=== PATIENT | female | born 1950 | race Two or more races ===

== ENCOUNTER → 2024-08-18 | Outpatient (CLI) | payer MEDICARE, SELFPAY ==
--- NOTE | 2024-08-18 08:00 | XR_ITS ---
Examination: Breast ultrasound complete, bilateral Date and time of exam: August 18, 2024 0855 hours INDICATIONS: Mammogram 04/10/2023 microcalcifications inferior lower right breast Technique: Real-time grayscale ultrasonographic imaging bilateral breasts, including all 4 quadrants as well as nipple retroareolar and axillary regions. Findings: Sonographic images right breast 1:00 cyst 6 x 7 mm 5:00 oval mass circumscribed 6 x 9 mm Sonographic images left breast 6:00 cyst 5 x 4 mm No solid nodules IMPRESSION: BI-RADS Category 3: Probably benign findings One additional 6 month right breast sonogram follow-up is needed to document stability of 5:00 nodule described above
--- NOTE | 2024-08-18 09:00 | XR_ITS ---
Examination: Screening digital mammography, bilateral Computer aided detection 3-D breast Tomosynthesis, bilateral Date and time of exam: August 18, 2024 0845 hours Compared to mammograms dating to February 14, 2022 Indication: Screening Technique: Nonmagnified MLO, CC views of the breasts to been obtained, reconstructed from 3-D Tomosynthesis images. R2 computer aided detection program utilized for evaluation of suspicious masses and/or abnormal calcifications. 3-D Tomosynthesis images obtained. Findings: The breasts are heterogeneously dense, which may obscure small masses Benign calcifications 11 mm nodule lobular margins 9:00 position right breast Impression: BI-RADS Category 0: Incomplete: Need additional imaging evaluation 11 mm nodule 9:00 position right breast, lobular margins, recommend follow-up spot tomographic views of this nodule as well as repeat right breast sonography with the radiologist in attendance
== END | disposition home or self-care (01) ==
PROVIDERS: PCP Physician Assistant; Referring Provider Physician Assistant; Visit Provider Physician Assistant
DX: Z12.31 Encounter for screening mammogram for malignant neoplasm of breast (principal); R92.8 Other abnormal and inconclusive findings on diagnostic imaging of breast; N63.15 Unspecified lump in the right breast, overlapping quadrants; N63.14 Unspecified lump in the right breast, lower inner quadrant
CPT/HCPCS: 76641; 77063; 77067

== ENCOUNTER → 2025-01-16 | Outpatient (CLI) | payer MEDICARE, SELFPAY ==
--- NOTE | 2025-01-16 11:00 | XR_ITS ---
Examination: Abdomen sonogram, complete Date and time of exam: January 16, 2025 1050 hours INDICATIONS: Left lower abdominal pain beginning 2 months ago. Technique: Multiple real-time grayscale transabdominal sonographic images of the abdomen have been obtained. Findings: 7 mm gallstone Gallbladder wall 0.3 cm Common bile duct 0.2 cm Pancreatic head 2.6 cm Aorta not enlarged Liver 14.9 cm fatty infiltration smooth contour no focal liver lesions Normal hepatopedal portal venous flow Patent IVC Right kidney 9.9 cm cortex 0.9 cm Left kidney 10.4 cm renal cortex 0.9 cm Mild to moderate bilateral renal parenchymal scar formation Spleen 9.9 cm IMPRESSION: Cholelithiasis, negative for cholecystitis Fatty liver
--- NOTE | 2025-01-16 11:30 | XR_ITS ---
Examination: Transvaginal ultrasound of the pelvis, complete Technique: Transvaginal sonographic images pelvis performed using stephen scale imaging Exam date and time: January 16, 2025 1112 hours INDICATIONS: Left lower abdominal pain beginning 2 months ago FINDINGS: Absent uterus Ovaries absent No free fluid in the pelvis No pelvic mass IMPRESSION: No free fluid in the pelvis No pelvic mass.
== END | disposition home or self-care (01) ==
LOC: CDIM 10:30
PROVIDERS: PCP Physician Assistant; Referring Provider Physician Assistant; Visit Provider Physician Assistant
DX: K80.20 Calculus of gallbladder without cholecystitis without obstruction (principal); K76.0 Fatty (change of) liver, not elsewhere classified
CPT/HCPCS: 76700; 76830

== ENCOUNTER 2025-04-14 12:04 | Inpatient (IN) | payer MEDICARE, MEDICAID, SELFPAY ==
--- NOTE | 2025-04-14 | XR_ITS ---
Examinations: MRI Brain without intravenous contrast. MRA brain without intravenous contrast. MRA carotids without intravenous contrast 3-D vascular reconstructions Date and time of exam: April 14, 2025 1735 hours INDICATIONS: Stroke alert today, onset focal neurologic deficit weakness in the left upper extremity and left lower extremity dizziness today Technique: Multiple axial and sagittal images of the brain have been obtained MRA brain carotid images without contrast obtained, including 3-D postprocessing, vascular maximum intensity projection images Findings: Sellaturcica is not enlarged. The optic chiasm and infundibular stalk are not remarkable. Prepontine and interpeduncular cisterns are not enlarged. No localized enlargement of the medulla or keny. Fourth ventricle and cerebellar tonsils normal in position. Subacute hemorrhage is not seen. Fourth ventricle is midline. Mass in the cerebellopontine angle region is not evident. 7th and 8th nerve complexes exhibits symmetry. Globes are symmetrical with no retro-orbital mass. Increased white matter signal moderate Diffusion-weighted images demonstrate 5 mm focus restricted diffusion right thalamus with matching signal deficit on the ADC map Mass-effect upon the ventricular system is not identified. MRA carotid images degraded by patient motion. MRA brain images significantly degraded by patient motion, no definite large vessel occlusions Impression: 5 mm acute infarct right thalamus
[2025-04-14 12:27] VITALS: BP 107/69; PULSE 81; RESP 17; TEMP 36.5; O2SAT 96; BMI 24.2
--- NOTE | 2025-04-14 12:34 | XR_ITS ---
Examination: CT brain head without contrast. 2-D sagittal coronal reconstructions Date and time of exam:April 14, 2025 1245 hours INDICATIONS: Stroke alert, onset focal neurologic deficit including right-sided numbness and weakness CTDI: vol (mGy):48.2 DLP: (mGycm):939 Technique: Multiple CT axial sections of the brain have been obtained, 5 mm slice thickness. Contrast has not been administered. 2-D sagittal, coronal reconstructions have been obtained Low dose protocols were performed. One or more of the following dose reduction techniques were used; automated exposure control, adjustment of the mA and/or KV according to patient size, use of iterative reconstruction technique. Findings: No significant ventricular enlargement. Intra-axial or extra-axial hemorrhage density is not seen. No mass effect or midline shift Basal cisterns are not remarkable. Fourth ventricle is midline. Cranial vault intact. Impression: Negative for acute hemorrhage, mass effect or midline shift
--- NOTE | 2025-04-14 12:34 | XR_ITS ---
Examination: AP chest single view Technique one AP portable upright chest single view Date and time: April 14, 2025 1315 hours INDICATIONS: Stroke alert today, altered mental status FINDINGS: Parenchymal disease in the lingular segment obscuring detail left cardiac contour Right lung clear No significant cardiac enlargement IMPRESSION: Recommend lateral chest view follow-up to assess parenchymal disease in the lingular segment
--- NOTE | 2025-04-14 12:34 | EKG_ITS ---
[facility] Test Date: 2025-04-14 Pat Name: DANNA COSTA Department: Room: - Gender: Female Virtual Reality Specialist: : 1950 Requested By: Ronan Santos Order Number: [id number] Reading MD: Ronan Santos Measurements Intervals [place] Rate: 72 P: 38 OK: 184 QRS: -41 QRSD: 116 T: -8 QT: 420 QTc: 461 Interpretive Statements SINUS RHYTHM LEFT AXIS DEVIATION [QRS AXIS < -30] INCOMPLETE RIGHT BUNDLE BRANCH BLOCK [90+ ms QRS DURATION, TERMINAL R IN V1/V2, 40+ ms S IN I/aVL/V4/V5/V6] MODERATE VOLTAGE CRITERIA FOR LVH, CONSIDER NORMAL VARIANT [MEETS CRITERIA IN ONE OF: R(aVL), S(V1), R(V5), R(V5/V6)+S(V1)] POSSIBLE LATERAL MYOCARDIAL INFARCTION , OF INDETERMINATE AGE [30 ms Q WAVE IN I/aVL/V5/V6] Compared to ECG 12/11/2020 08:27:34 Myocardial infarct finding now present /store/S0/[id number]/ecg/[id number].pdf
--- NOTE | 2025-04-14 12:39 | PD.EDDIZZY ---
ED Dizzyness RME/HPI General Chief Complaint: Dizziness Stated Complaint: Left side is numb since am, dizziness Time Seen by Provider: 04/14/25 12:27 Arrival date/time: 04/14/25 12:04 RME / HPI RME / HPI Narrative: 74-year-old female patient with significant history of diabetes, hypertension, recent mild stroke/mini stroke according to the patient last Thursday, was admitted in [facility] and was discharged after few days. According to her ,her MRI and CT scan of the head came back unremarkable. Around 11 AM this morning, after shower, patient felt worsening weakness to the left upper and lower extremity with chest discomfort. It was described as heavy. Also complained of dizziness. Denies any fall. Denies any other complaints. Patient is currently taking aspirin patient denies any slurring of speech. Patient is unable to ambulate without assistance due to weakness to the left side of the body. According to her this is worse than last Thursday. Related Data Home Medications ?Medication ?Instructions ?Recorded ?Confirmed pravastatin 80 mg tablet 80 mg PO HS #0 tabs 01/20/17 12/12/20 (Pravachol) temazepam 30 mg capsule (Restoril) 30 mg PO HS #0 caps 01/20/17 12/12/20 buprenorphine HCl 150 mcg buccal 150 mcg buccal Q12H 05/15/20 12/12/20 film (Belbuca) clonidine HCl 0.1 mg tablet 0.1 mg PO BID 05/15/20 12/12/20 pentoxifylline 400 mg 400 mg PO BID 05/15/20 12/12/20 tablet,extended release sitagliptin phosphate 100 mg 100 mg PO QDAY 05/15/20 12/12/20 tablet (Januvia) benazepril 20 mg tablet 20 mg PO QDAY 05/16/20 12/11/20 magnesium 200 mg tablet 200 mg PO QDAY 05/16/20 12/12/20 vit C,E,copper,zinc-haiat9v 250 1 cap PO BID 05/16/20 12/12/20 mg-lutein 5 mg-zeaxanthin 1 mg capsule (Ocuvite Adult 50 Plus) zinc 50 mg tablet 50 mg PO BID 05/16/20 12/12/20 cholecalciferol (vitamin D3) 125 125 mcg PO BID 12/11/20 12/12/20 mcg (5,000 unit) tablet (Vitamin D3) cyanocobalamin (vitamin B-12) 5,000 mcg PO BID 12/11/20 12/12/20 5,000 mcg sublingual tablet (Vitamin B-12) glipizide 10 mg tablet 10 mg PO BID 12/11/20 12/12/20 insulin glargine U-300 conc 300 50 unit subcut HS 12/11/20 12/12/20 unit/mL (1.5 mL) subcutaneous pen (Toujeo SoloStar U-300 Insulin) latanoprost 0.005 % eye drops 1 drp ophthalmic (eye) QPM 12/11/20 12/12/20 pregabalin 300 mg capsule 300 mg PO BID 12/11/20 12/12/20 timolol maleate 0.5 % once daily 1 drp ophthalmic (eye) BID 12/11/20 12/12/20 eye drops turmeric root extract 500 mg 500 mg PO BID 12/11/20 12/12/20 capsule Allergies Allergy/AdvReac Type Severity Reaction Status Date / Time fentanyl Allergy Unknown VOMITING Verified 04/14/25 12:08 acetaminophen (From Vicodin) Allergy Rash Verified 04/14/25 12:08 hydrocodone AdvReac Mild Itching Verified 04/14/25 12:08 Review of Systems Review of Systems Narrative Review of Systems: Review of system reviewed and within normal limits except mentioned in HPI ED Exam Narrative Physical exam: VITAL SIGNS: Reviewed. GENERAL APPEARANCE: Alert and interactive, follows commands, no acute distress, HEAD AND FACE: Non-traumatic. ENT: PERRL, pink conjunctivitis, eyelid no trauma, Mucous membrane moist. NECK: Supple, nontender, no nuchal rigidity. CHEST: No tenderness, no crepitus, no paradoxical movement, no retractions. LUNGS: Clear, well ventilated, symmetric, no rales, no wheezing, no ronchi, no stridor, good breath sounds bilaterally. HEART: Regular rate, regular rhythm, no murmur, no gallops. ABDOMEN: Soft, positive bowel sounds, nondistended, no guarding, nontender, no rebound, no masses, RECTAL: Deferred. GENITAL: Deferred. NEUROLOGICAL: Gross motor function intact sensory function intact, Appropriate for age. MUSCULOSKELETAL: low back nontender, full range of motion. EXTREMITIES: Mild drooping noted on the left upper extremity ,nontender, full range of motion. SKIN: Color pink, dry, no rash, no lacerations, no abrasions, no contusions. LYMPHATICS: Deferred. Course Quality Measures none Orders Category Date Time Status Bedside Blood Glucose NOW Care 04/14/25 12:34 Active COVID-19 Screening Questionnaire NOW Care 04/14/25 14:14 Active Fishing Captain NOW Care 04/14/25 12:34 Active Continuous Pulse Oximetry NOW Care 04/14/25 12:34 Completed Decision to Admit X1 Care 04/14/25 14:14 Active EKG (ED ONLY) *Do not use* NOW Care 04/14/25 12:34 Completed In and Out Catheter NEEDED Care 04/14/25 12:34 Active Insert IV NOW Care 04/14/25 12:34 Active NIH Stroke Scale now Care 04/14/25 12:34 Active NPO NOW Care 04/14/25 12:34 Active Nurse Swallow Screen x1 Care 04/14/25 12:34 Active Consult to Neurology / Tele-Neurology Routine Cons 04/14/25 12:[address] angio stroke protocol Stat Exams 04/14/25 12:[address] stroke protocol Stat Exams 04/14/25 12:34 Completed EKG (ED Only) Stat Exams 04/14/25 12:34 Draft XR chest 1V portable Stat Exams 04/14/25 12:34 Completed CBC Stat Lab 04/14/25 13:01 Completed Comprehensive Metabolic Panel Stat Lab 04/14/25 13:01 Completed Drug Screen,Urine Stat Lab 04/14/25 12:34 Ordered HCG Titer if Positive Stat Lab 04/14/25 13:01 Completed Magnesium Stat Lab 04/14/25 13:01 Completed Partial Thromboplastin Time Stat Lab 04/14/25 13:01 Completed Prothrombin Time with INR Stat Lab 04/14/25 13:01 Completed Troponin I Stat Lab 04/14/25 13:01 Completed Urinalysis Stat Lab 04/14/25 12:34 Ordered Urine Culture Stat Lab 04/14/25 12:34 Ordered Clopidogrel [Plavix] Med 04/14/25 12:53 Discontinued 300 mg PO X1 ONE Labetalol IV [Trandate IV] Med 04/14/25 12:34 Active 10 mg IVP Q15M PRN Magnesium Sulfate 2 GM Ivpb [Magnesium Sulfate Ivpb] Med 04/14/25 14:03 Active 2 gm in 50 ml IV X1 Ondansetron Inj [Zofran Inj] Med 04/14/25 12:34 Active 4 mg IVP Q4HR PRN Oxygen Delivery NOW RT 04/14/25 12:34 Active Vital Signs Vital signs: Vital Signs Temperature 97.7 F 04/14/25 12:27 Pulse Rate 81 04/14/25 12:27 Respiratory Rate 17 04/14/25 12:27 Blood Pressure 107/69 04/14/25 12:27 Pulse Oximetry (%) 96 04/14/25 12:27 Oxygen Delivery Method Room Air 04/14/25 12:27 Dizziness MDM Narrative MDM Narrative:: 74-year-old female patient with significant history of diabetes, hypertension, recent mild stroke/mini stroke according to the patient last Thursday, was admitted in [facility] and was discharged after few days. According to her ,her MRI and CT scan of the head came back unremarkable. Around 11 AM this morning, after shower, patient felt worsening weakness to the left upper and lower extremity with chest discomfort. It was described as heavy. Also complained of dizziness. Denies any fall. Denies any other complaints. Patient is currently taking aspirin patient denies any slurring of speech. Patient is unable to ambulate without assistance due to weakness to the left side of the body. According to her this is worse than last Thursday. Stroke alert was initiated right away EKG shows sinus rhythm, ventricular rate of 72 bpm, no ST segment elevation or depression noted. CT scan of the head came back unremarkable. CTA of the head and neck was not done per teleneurologist recommendation. Since patient had a thorough workup and [facility] few days ago. Regarding stroke. Spoke with teleneurologist, who advised me to admit the patient for stroke workup. Patient received Plavix full dose x 1 Patient's CBC came back with slight leukocytosis of 11.2 CMP unremarkable except for magnesium 1.2. Patient received magnesium replacement. Chest x-ray came back unremarkable. Patient data External records reviewed:: None Clinical information provided by:: patient Social determinants that could affect healthcare access:: none Patient has the following chronic illnesses:: Hypertension diabetes mellitus How is presenting disease/condition affected by chronic disease/condition?: exacerbated by Evaluation data The following diagnostics were reviewed and interpreted by me:: lab results, radiology exam(s) and EKG tracing(s) Lab and/or radiology exams considered but not ordered:: None Interpretation Summary: See results MDM Medications / Prescriptions Medications or Prescriptions considered but not ordered:: None Medication administrations:: Medication Administration History Magnesium Sulfate (Magnesium Sulfate Ivpb) 2 gm in 50 mls @ 25 mls/hr IV X1 ONE Stop: 04/14/25 16:02 Last Admin: 04/14/25 14:15 Dose: 25 mls/hr Documented By: HOLLIE Labetalol HCl (Labetalol Inj 5 Mg/Ml Vial 20 Ml) 10 mg IVP Q15M PRN PRN Reason: HYPER Ondansetron HCl (Ondansetron Inj 2 Mg/Ml Inj 2 Ml) 4 mg IVP Q4HR PRN PRN Reason: NAUSEA OR VOMITING Stop: 05/14/25 12:33 Discontinued Medications Clopidogrel Bisulfate (Clopidogrel Bisulfate 75 Mg Tablet) 300 mg PO X1 ONE Stop: 04/14/25 12:54 Last Admin: 04/14/25 13:13 Dose: 300 mg Documented By: HOLLIE Plavix Consultations Consultation(s) initiated? (list below): Yes Consultation #1 (Physician, Specialty, Details): Spoke with teleneurologist, discussed the case Diagnosis Dizziness Differential Diagnosis: vertebral basilar insufficiency and cerebrovascular accident Most likely diagnosis given after review of the tests above:: CVA recrudescence Admission Indicated Admission indicated?: indicated Explain why admission is indicated or not indicated:: For stroke workup Admission Request Was there a request for admission?: Yes Admission Attestation Admission request attestation: Discussed case with Hospitalist service regarding admission. Discussed patients ED course, exam findings, labs, and radiology results. The Hospitalist [agrees to accept the patient for admission. Disposition Plan Disposition Plan: Admit Discharge Plan Plan Patient Disposition: Admit Acute Care w/in Hospital Discharge Disposition comment: Stable Prescriptions/Referrals Prescriptions/Med Rec: No Action pravastatin [Pravachol] 80 MG tablet 80 mg PO HS Qty: 0 temazepam [Restoril] 30 MG capsule 30 mg PO HS Qty: 0 clonidine HCl 0.1 mg Tablet 0.1 mg PO BID Januvia 100 mg Tablet 100 mg PO QDAY Belbuca 150 mcg Film 150 mcg BUCCAL Q12H pentoxifylline 400 mg Tablet Extended Release 400 mg PO BID benazepril 20 mg Tablet 20 mg PO QDAY zinc 50 mg Tablet 50 mg PO BID magnesium 200 mg Tablet 200 mg PO QDAY Ocuvite Adult 50 Plus 250-5-1 mg Capsule 1 cap PO BID latanoprost 0.005 % Drops 1 drp OPHTHALMIC (EYE) QPM glipizide 10 mg Tablet 10 mg PO BID timolol maleate 0.5 % Drops, Once Daily 1 drp OPHTHALMIC (EYE) BID pregabalin 300 mg Capsule 300 mg PO BID cholecalciferol (vitamin D3) [Vitamin D3] 125 mcg (5,000 unit) Tablet 125 mcg PO BID cyanocobalamin (vitamin B-12) [Vitamin B-12] 5,000 mcg Tablet, Sublingual 5,000 mcg PO BID turmeric root extract 500 mg Capsule 500 mg PO BID Toujeo SoloStar U-300 Insulin 300 unit/mL (1.5 mL) Insulin Pen 50 unit SUBCUT HS Referrals: Luz Maria Patino PA-C [Primary Care Provider] - In 1 week Problem List Clinical Impression: Cerebrovascular accident Patient/Caregiver Discharge Instructions Print Language: Kiswahili Stand Alone Forms: Mary Award Info., Patient Portal Info Letter
[2025-04-14 13:12] LABS: Basophils # (Auto) 0.0 Thou/mm3 (0.0-0.2); Basophils % (Auto) 0 % (0-2.5); Eosinophils # (Auto) 0.2 Thou/mm3 (0.0-0.5); Eosinophils % (Auto) 1 % (0-10); Hematocrit 38.6 % (36.0-46.0); Hemoglobin 13.4 g/dL (12.0-16.0); Immature Granulocytes Auto 0.04 Thou/mm3 (0.00-0.00); Lymphocytes # (Auto) 3.6 Thou/mm3 (1.0-4.8); Lymphocytes % (Auto) 32 % (10-50); Mean Corpuscular HGB Conc 34.7 g/dl (31.0-37.0); Mean Corpuscular Hemoglobin 29.5 pg (25.0-35.0); Mean Corpuscular Volume 85 fL (80-100); Monocytes # (Auto) 0.9 Thou/mm3 (0.0-0.8); Monocytes % (Auto) 8 % (0-12); Neutrophils # (Auto) 6.5 Thou/mm3 (1.8-7.7); Neutrophils % (Auto) 58 % (37-80); Nucleated Red Blood Cell # 0.00 Thou/mm3 (0.00-0.00); Nucleated Red Blood Cell % 0 /100 WBC (0); Platelet Count 191 Thou/mm3 (140-440); RDW Standard Deviation 41.2 fL (36.4-46.3); Red Blood Count 4.54 Miln/mm3 (4.00-5.20); White Blood Count 11.2 Thou/mm3 (3.6-11.0)
[2025-04-14] MEDS: CLOPIDOGREL BISULFATE 75 MG TABLET 300 MG PO (13:13)
--- NOTE | 2025-04-14 13:38 | ESCONSULT_ITS ---
Tele Neuro Consultation Consultation Date 04/14/25 Most Recent Vital Signs Last Vital Signs Temp 97.7 F 04/14/25 12:27 Pulse 81 04/14/25 12:27 Resp 17 04/14/25 12:27 BP 107/69 04/14/25 12:27 Pulse Ox 96 04/14/25 12:27 O2 Del Method Room Air 04/14/25 12:27 Consultation Narrative [facility] Patient Name: jorge luis montiel Date of : 1950 Identification Number: Date of Service: 04/14/2025 12:37:45 Diagnosis: ? I63.89 - Cerebrovascular accident (CVA) due to other mechanism ([facility]) Impression: ? Stroke versus stroke recrudescence Patient's not within the window for treatment with IV thrombolytic therapy after further confirming with the patient her last known normal was 5 days ago I would recommend admission for repeat MRI of the brain without contrast Plavix 300 mg now and begin a 21-day course of dual antiplatelet therapy consisting of Plavix 75 mg and aspirin 81 mg daily Records from the outside facility for her admission will need to be obtained and reviewed Carotid duplex studies or MRA head and neck study is reasonable Our recommendations are outlined below. Recommendations: ? Stroke/Telemetry Floor ? Neuro Checks (Q2) ? Bedside Swallow Eval ? DVT Prophylaxis ? IV Fluids, Normal Saline ? Head of Bed 30 Degrees ? Euglycemia and Avoid Hyperthermia (PRN Acetaminophen) ? Bolus with Clopidogrel 300 mg bolus x1 and initiate dual antiplatelet therapy with Aspirin 81 mg daily and Clopidogrel 75 mg daily Sign Out: ? Discussed with Emergency Department Provider Advanced Imaging: Advanced Imaging Deferred because: Does not meet criteria due to being out of the 24-hour window for thrombectomy Metrics: Last Known Well: Unknown Dispatch Time: 04/14/2025 12:37:45 Arrival Time: 04/14/2025 12:05:00 Initial Response Time: 04/14/2025 12:42:42 Symptoms: L sided weakness . Initial patient interaction: 04/14/2025 12:47:47 NIHSS Assessment Completed: 04/14/2025 12:49:45 Patient is not a candidate for Thrombolytic. Thrombolytic Medical Decision: 04/14/2025 12:49:48 Patient was not deemed candidate for Thrombolytic because of following reasons: LKW outside 4.[address] Head: I personally reviewed all the CT images that were available to me and it showed: no acute abnormality Primary Provider Notified of Diagnostic Impression and Management Plan on: 04/14/2025 13:34:31 History of Present Illness: Patient is a 74 year old Female. Patient was brought by private transportation with symptoms of L sided weakness . 74-year-old female with a past medical history significant for hypertension hyperlipidemia as well as diabetes Patient also has peripheral vascular disease and neuropathy Reportedly the patient was admitted to a different facility a week ago with TIA symptoms that she states consisted of left-sided weakness numbness and tingling She informs me she had an MRI of the brain and they told her that it was difficult to ascertain whether or not she truly did have an infarct but she was then discharged on aspirin When I question whether not she had any residual deficits she states they were very mild consisting of just a little bit of numbness and tingling in her left arm and left leg She returns to the emergency department today with an unknown last normal time stating that her left arm and left leg feel much heavier and the numbness and tingling is much more profound Past Medical History: ? Hypertension ? Diabetes Mellitus ? Hyperlipidemia ? Stroke ? There is no history of Atrial Fibrillation ? There is no history of Coronary Artery Disease ? There is no history of Covid-19 ? There is no history of Seizures ? There is no history of Migraine Headaches ? There is no history of Dementia/MCI Medications: No Anticoagulant use Antiplatelet use: Yes Aspirin Reviewed EMR for current medications Allergies: Reviewed Social History: Drug Use: No Family History: There is no family history of premature cerebrovascular disease pertinent to this consultation ROS : 14 Points Review of Systems was performed and was negative except mentioned in HPI. Past Surgical History: There Is No Surgical History Contributory To Today?s Visit Examination: BP(107/69), Pulse(81), Blood Glucose(173) 1A: Level of Consciousness - Alert; keenly responsive + 0 1B: Ask Month and Age - Both Questions Right + 0 1C: Blink Eyes & Squeeze Hands - Performs Both Tasks + 0 2: Test Horizontal Extraocular Movements - Normal + 0 3: Test Visual Le - No Visual Loss + 0 4: Test Facial Palsy (Use Grimace if Obtunded) - Normal symmetry + 0 5A: Test Left Arm Motor Drift - Drift, hits bed + 2 5B: Test Right Arm Motor Drift - No Drift for 10 Seconds + 0 6A: Test Left Leg Motor Drift - Some Effort Against [place] + 2 6B: Test Right Leg Motor Drift - No Drift for 5 Seconds + 0 7: Test Limb Ataxia (FNF/Heel-Jeffery) - No Ataxia + 0 8: Test Sensation - Mild-Moderate Loss: Can Sense Being Touched + 1 9: Test Language/Aphasia - Normal; No aphasia + 0 10: Test Dysarthria - Normal + 0 11: Test Extinction/Inattention - No abnormality + 0 NIHSS Score: 5 Pre-Morbid Modified Celestine Scale: 1 Points = No significant disability despite symptoms; able to carry out all usual duties and activities Spoke with : Dr. Santos This consult was conducted in real time using interactive audio and video technology. Patient was informed of the technology being used for this visit and agreed to proceed. Patient located in hospital and provider located at home/office setting. Patient is being evaluated for possible acute neurologic impairment and high probability of imminent or life-threatening deterioration. I spent total of 35 minutes providing care to this patient, including time for face to face visit via telemedicine, review of medical records, imaging studies and discussion of findings with providers, the patient and/or family. Dr Mark Stroud [facility] For Inpatient follow-up with [facility] physician please call [facility] at . As we are not an outpatient service for any post hospital discharge needs please contact the hospital for assistance. If you have any questions for the [facility] physicians or need to reconsult for clinical or diagnostic changes please contact us via C at .
[2025-04-14 13:43] LABS: HCG Titer if Positive Negative
[2025-04-14 13:46] LABS: INR 1.0 (0.9-1.3); Partial Thromboplastin Time 27.9 Seconds (22.0-36.0); Prothrombin Time 10.9 Seconds (9.0-12.2)
[2025-04-14 13:49] LABS: Alanine Aminotransferase 32 U/L (10-49); Albumin, Serum 3.9 gm/dL (3.4-4.8); Albumin/Globulin Ratio 1.4 (1.2-2.2); Alkaline Phosphatase 99 U/L (46-116); Anion Gap 12 (7-16); Aspartate Amino Transferase 41 U/L (0-34); BUN/Creatinine Ratio 15 Ratio (12-20); Bilirubin,Total 0.6 mg/dL (0.3-1.2); Blood Urea Nitrogen 19 mg/dL (9-23); Calcium 8.9 mg/dL (8.3-10.6); Calcium (Corrected) 9.0 mg/dL (8.5-10.1); Carbon Dioxide 21.5 mMol/L (20.0-31.0); Chloride 107 mMol/L (98-107); Creatinine (Component) 1.3 mg/dL (0.6-1.3); Estimated Creatinine Clearance 35.5 mL/min (>60); Globulin 2.7 gm/dL (2.3-3.5); Glucose 172 mg/dL (74-106); Magnesium 1.2 mg/dL (1.6-2.6); Osmolality,Calculated 285 (275-295); Potassium 4.3 mMol/L (3.4-5.1); Sodium 140 mMol/L (136-145); Total Protein 6.6 gm/dL (5.7-8.2); Troponin I < 0.020 ng/mL (0.0-0.045); eGFR 43 See Note
[2025-04-14 14:04] VITALS: BP 111/58; PULSE 71; RESP 17; TEMP 36.4; O2SAT 96
[2025-04-14] MEDS: Magnesium Sulfate 2 GM Ivpb 2 GM/50 ML BAG IV (14:15)
--- NOTE | 2025-04-14 15:06 | ESHP_ITS ---
<Statement entered by Ba Becerril MD - 04/14/25 16:49> This patient is a 74-year-old female with past medical history of hypertension, diabetes, fibromyalgia and spinal cyst with surgery in 1991 presented with left- sided upper and lower extremity weakness/heaviness. Patient had syncope 1 month ago and was hospitalized at [facility] and was worked up for stroke/TIA. Workup was negative at the hospital setting. Patient has mild shortness of breath with headache and cloudy vision on the left side. Head CT showed no acute changes. Patient was given aspirin and Plavix with statin. Will follow- up on MRI brain stroke protocol, PT evaluation and echocardiogram and orthostatic vital. Follow neurology recommendations. I discussed and supervised with the internet project manager physician who took care of this patient. I personally saw and examined the patient. I agree with most of the assessment and plan. Disclaimer: Despite multiple revisions, due to the dictation software being used, the document bellow may not be free of grammatical errors including phonetic/typographic errors. However, this does not deter from our commitment to providing health care in the patient's best interest in mind. Plan of care discussed with attending Physician Dr. Julio Becerril MD PGY-3 Documentation for date of: 04/14/25 HPI History of Present Illness History of present illness: Mr. Garduno is a 74-year-old woman with a history of hypertension,diabetes insulin, fibromyalgia, and history of spinal cyst 2 inches with surgery in [address] Beatty, patient reports recent fall within the past month with head strike. She reports that she was hospitalized at [facility] 04/08 and underwent stroke workup for presentation of left upper and lower paresthesias, that resolved, but stroke workup was negative and they discharged her with aspirin, Plavix, and statin. She reports that 9 AM today she was feeling well she went to prepare her breakfast and started to feel lightheaded. She states that she began to experience left-sided upper extremity and lower extremity heaviness which prompted her to sit down. She states that this left-sided sensation is different from what she experienced on 04/08. ROS Patient endorses shortness of breath upon exertion, headache, urge incontinence, and cloudy vision on the left side. Patient denies fever chills chest pain cough ED course Dx * Chest x-ray * UA * Urine cultures * Noncon head CT Negative for acute hemorrhage, mass effect or midline shift * Telemetry neuroconsulted Tx * Clopidogrel 300 mg bolus dose * Magnesium repletion Review of Systems Review of Systems Narrative Review of Systems: As per HPI Past Medical History Surgical History OTHER SURGICAL HX: Hysterectomy, lumpectomy on the right breast, tubal ligation, D&C, back surgery in 1991 for spinal cyst, Social History SOCIAL: No smoking history no alcohol use Patient endorses occasional THC use Gummies to help with sleep Patient lives at home with daughter she is independent of ADLs and IADLs and has cane at home Exam Vital Signs Temp Pulse Resp BP Pulse Ox O2 Del Method 97.6 F 71 17 111/58 L 96 Room Air 04/14/25 14:04 04/14/25 14:04 04/14/25 14:04 04/14/25 14:04 04/14/25 14:04 04/14/25 14:04 Narrative Exam GENERAL: no acute distress, AAO x3, comfortably laying in bed HEENT: Head AT/ NC. Mucous membranes dry . PERRL. NECK: Supple, no lymphadenopathy, no carotid bruits. CARDIOVASCULAR: RRR. Normal S1/S2, No m/r/g. No pitting edema of bilateral LEs. RESPIRATORY: CTAB. No wheezing, rhonchi, crackles. GASTROINTESTINAL: Abdomen soft, non tender no palpable masses. Bowel sounds present MUSCULOSKELETAL:? No cyanosis or edema, no visible joint swelling. NEUROLOGICAL: CN II-XII grossly intact. No focal deficits. Sensation intact, symmetric. ? CRANIAL NERVES: ? II: Pupils equal and reactive, no RAPD,?minimal R visual field. Left visual field is normal ? III, IV, : EOM intact, no gaze preference or deviation ? V: normal ? VII: no facial asymmetry ? VIII: normal hearing to speech ? MOTOR: 5/5 in both upper , Left lower extremity is 2/5 strength . RLE is 5/5 ? REFLEXES:not tested ? SENSORY: Normal to touch ? COORD: Normal finger to nose, no tremor, did not assess gait. PSYCHIATRIC: Awake and alert, not agitated, normal mood and affect. SKIN: No obvious rashes, no jaundice, normal turgor. Results: Labs 04/15/25 04:40 04/15/25 04:40 Labs: Short CBC 07/18/25 Range/Units 13:01 WBC 11.2 H (3.6-11.0) Thou/mm3 Hgb 13.4 (12.0-16.0) g/dL Hct 38.6 (36.0-46.0) % Plt Count 191 (140-440) Thou/mm3 BMP 04/14/25 13:01 Sodium 140 Potassium 4.3 Chloride 107 Carbon Dioxide 21.5 BUN 19 Creatinine 1.3 Glucose 172 H Calcium 8.9 Cardiac Enzymes 04/14/25 Range/Units 13:01 Troponin I < 0.020 (0.0-0.045) ng/mL Liver Function 04/14/25 Range/Units 13:01 Total Bilirubin 0.6 (0.3-1.2) mg/dL AST 41 H (0-34) U/L ALT 32 (10-49) U/L Alkaline Phosphatase 99 (46-116) U/L Albumin 3.9 (3.4-4.8) gm/dL Quality Measures Quality Measures none Advance care planning discussed with:: patient Medications Home Medications and Allergies Home Medications ?Medication ?Instructions ?Recorded ?Confirmed ?Type pravastatin 80 mg tablet 80 mg PO HS #0 tabs 01/20/17 04/14/25 History (Pravachol) temazepam 30 mg capsule (Restoril) 30 mg PO HS #0 caps 01/20/17 04/14/25 History buprenorphine HCl 150 mcg buccal 150 mcg buccal Q12H 0 05/15/20 04/14/25 History film (Belbuca) clonidine HCl 0.1 mg tablet 0.1 mg PO BID 05/15/20 History pentoxifylline 400 mg 400 mg PO BID 05/15/2012/12 History tablet,extended release sitagliptin phosphate 100 mg 100 mg PO QDAY 05/15/20 0 04/14/25 History tablet (Januvia) benazepril 20 mg tablet 20 mg PO QDAY 05/16/2004/14 History magnesium 200 mg tablet 200 mg PO QDAY 05/16/2003/28 History vit C,E,copper,zinc-[id number] 250 1 cap PO BID 05/16/20 12/12/20 History mg-lutein 5 mg-zeaxanthin 1 mg capsule (Ocuvite Adult 50 Plus) zinc 50 mg tablet 50 mg PO BID 05/16/20 History cholecalciferol (vitamin D3) 125 125 mcg PO BID 04/14/25 History mcg (5,000 unit) tablet (Vitamin D3) cyanocobalamin (vitamin B-12) 5,000 mcg PO BID 1 04/14/25 History 5,000 mcg sublingual tablet (Vitamin B-12) glipizide 10 mg tablet 10 mg PO BID 12/11/20 History insulin glargine U-300 conc 300 50 unit subcut HS 11/2612/12/20 History unit/mL (1.5 mL) subcutaneous pen (Toujeo SoloStar U-300 Insulin) latanoprost 0.005 % eye drops 1 drp ophthalmic (eye) Q PM 12/11/20 12/12/20 History pregabalin 300 mg capsule 300 mg PO BID 12/11/2004/14 History timolol maleate 0.5 % once daily 1 drp ophthalmic (eye ) BID 12/11/20 04/14/25 History eye drops turmeric root extract 500 mg 500 mg PO BID 12/11/20 History capsule estradiol 1 mg tablet 1 mg PO HS 04/14/25 04/14/25 History finerenone 10 mg tablet (Kerendia) 10 mg PO HS 5 04/14/25 History insulin glargine U-300 conc 300 40 unit subcut HS 03/2804/14/25 History unit/mL (3 mL) subcutaneous pen (Toujeo Max U-300 SoloStar) semaglutide 0.25 mg or 0.5 mg (2 0.5 mg subcut QWEEK 0 04/14/25 04/14/25 History mg/3 mL) subcutaneous pen injector (Ozempic) Allergies Allergy/AdvReac Type Severity Reaction Status Date / Time fentanyl Allergy Unknown VOMITING Verified 04/14/25 12:08 acetaminophen (From Vicodin) Allergy Rash Verified 04/14/25 12:08 hydrocodone AdvReac Mild Itching Verified 04/14/25 12:08 Visit Medications Magnesium Sulfate (Magnesium Sulfate Ivpb) 2 gm in 50 mls @ 25 mls/hr IV X1 ONE Stop: 04/14/25 16:02 Last Admin: 04/14/25 14:15 Dose: 25 mls/hr Labetalol HCl (Labetalol Inj 5 Mg/Ml Vial 20 Ml) 10 mg IVP Q15M PRN PRN Reason: HYPER Ondansetron HCl (Ondansetron Inj 2 Mg/Ml Inj 2 Ml) 4 mg IVP Q4HR PRN PRN Reason: NAUSEA OR VOMITING Stop: 05/14/25 12:33 Discontinued Medications Clopidogrel Bisulfate (Clopidogrel Bisulfate 75 Mg Tablet) 300 mg PO X1 ONE Stop: 04/14/25 12:54 Last Admin: 04/14/25 13:13 Dose: 300 mg Assessment & Plan Plan Mr. Garduno is a 74-year-old woman with a history of hypertension,diabetes insulin, fibromyalgia, and history of spinal cyst 2 inches with surgery in [address] Beatty, patient reports recent fall within the past month with head strike. She reports that she was hospitalized at [facility] 04/08 and underwent stroke workup for presentation of left upper and lower paresthesias, that resolved, but stroke workup was negative and they discharged her with aspirin, Plavix, and statin. she presented to our ED with LLE focal weakness pending stroke work up. Consider possible compression from spinal cyst appreciate input from neuro given patient follows with them. #Acute ischemic Stroke Patient was not deemed a candidate for tPA because last known well was greater than 4.5 hours NIHSS score of 5 per tele neuro Dx * NCHCT Negative for acute hemorrhage, mass effect or midline shift * CTA head neck not indicated. Telemetry neuroconsult recommendations * Brain MRI pending * Echo pending * A1c pending * TSH pending * Lipid panel Triglycerides 450, * Every 4 hours neuro checks * Telemetry neurology consulted recommends; Bolus with Clopidogrel 300 mg bolus x1 and initiate dual antiplatelet therapy with Aspirin 81 mg daily and Clopidogrel 75 mg daily * In-house neurologist consulted: Dr. Gavin, appreciate recs * Consult physical therapy * Consult speech Tx * Clopidogrel 300 mg 1x bolus * ASA 81 mg daily * Clopidogrel 75 mg daily * Atorvastatin 40 mg at bedtime * pt is allergic to APAP, avoid hyperthermia * Hydralazine 10 mg every 8 hours as needed for SBP greater than 180 * Keep euglycemic * Head a bed 30 degrees * Permissive hypertension in the first 48 hours continue to hold home antihypertensives # Leukocytosis Mild leukocytosis noted on labs, continue to monitor for uptrending and follow- up infectious workup Dx CXR negative UA pending UCx pending #Spinal Cyst per pt report she has hx of spinal cyst, unclear at what spinal level with hx of back surgery in 1991. per patient in 2008 he found recurrence of the cyst. She states that the cyst is now 2 inches. She denies any red flag symptoms of saddle anesthesia bowel or bladder incontinence however this focal left lower extremity weakness is concerning for possible compression. - Appreciate neuro recs Chronic #Fibromyalgia - Lyrica 300mg #T2DM on insulin per patient she takes insulin long acting 40 unitis at night and glipizide 10 mg PO BID, Stitagliptin (Januvia) - SSI -Q6hr checks - 20 units insulin long acting #HTN -benazepril 20 mg qd ? #R eye Glaucoma - latanoprost 1 drop qd - timolol 1 drop qd #HLD per pt report she was started on 2 statin medications upon discharge from [facility] Triglycerides elevated on intake 450 HDL 33 #insomnia -HOLD temazepam 30 mg qhs #Vaginal prolapse -estridiole Dispo: pending stroke workup Diet: Carb controlled diet pending bedside nurse swallow Bowel Reg: Senna 1 tab daily scheduled, MiraLAX daily 17 g daily scheduled VTE ppx: Heparin SC 5000 GI ppx: Protonix 40 Code status: Full Case discussed with my senior resident Dr. Becerril Case discussed with my attending Dr. Julio Hsu MD PGY-1 Attending Provider Attestation/Addendum Kristina Dumas DO, attest that I was physically present for the trujillo portions of the service and evaluated the patient with the resident and I reviewed and discussed the case with the resident and agree with the resident's findings and plans of care as documented above Patient is a 74-year-old female with past medical history of hypertension, diabetes, fibromyalgia, spinal cyst who was brought to the ED due to sudden onset of left sided weakness. She states that she noted it this morning while walking to the kitchen and felt some heaviness in her left upper and lower extremity. Patient states that she was recently seen at [facility] and worked up for possible stroke. She states that she had undergone an MRI and was told that she may have had a TIA. However, she reported that the MRI did not show any acute CVA. Patient states during that episode, patient had left upper extremity weakness, that quickly improved after admission at [facility]. Patient states that she had some unsteadiness in the past month or so while on a trip in [place] taking care of her family members. She has endorsing occasional dizziness/lightheadedness, but no changes in vision. Here in the ED, stroke alert was called during which a CT head was done and showed no acute intracranial findings. Teleneuro was consulted and recommended Plavix loading dose of 300 mg. Patient has been on aspirin and and statin at home since her discharge from [facility]. Upon evaluation, patient is noted to have left lower extremity weakness with muscle strength 1 out of 5 and left upper extremity framework developer strength 4 out of 5. Rest of exam was unremarkable. During examination of extra ocular muscles, movement did reproduce the lightheadedness that patient reported this morning. Gross sensation is intact in bilateral upper and lower extremities. Will admit patient to telemetry for further workup and medical management of acute CVA. Will order MRI and place patient on cardiac monitoring to obtain echocardiogram. Patient had been referred to Dr. Higgins outpatient for cardiology follow-up and has been being worked up for possible arrhythmia. Will order echocardiogram. She states that she had been referred due to some shortness of breath on exertion. Patient denies any smoking or underlying lung issues. She denies any chest pain, chills, nausea, vomiting, diarrhea, dysuria otherwise.
--- NOTE | 2025-04-14 15:07 | ECHO_ITS ---
Transthoracic Echo Report Ht (in): 66 Wt (lb): 150 Exam Location: Echo Lab Status: Emergency Concierge: Petra Flores Indications: Procedure Performed: BP: 108 / 71 HR: 94 Technical Quality: Technically difficult study MEASUREMENTS (Male / Female) Normal Values 2D ECHO LV Diastolic Diameter PLAX 2.8 cm 4.2 - 5.9 / 3.9 - 5.3 cm LV Systolic Diameter PLAX 1.9 cm IVS Diastolic Thickness 1.1 cm 0.6 - 1.0 / 0.6 - 0.9 cm LVPW Diastolic Thickness 1.0 cm 0.6 - 1.0 / 0.6 - 0.9 cm LV Relative Wall Thickness 0.8 LVOT Diameter 1.3 cm Aortic Root Diameter 2.8 cm LA Volume Index 20.3 cm?/m? 16 - 28 cm?/m? Ascending Aorta Diameter 2.3 cm M-MODE Aortic Root Diameter MM 2.4 cm LA Systolic Diameter MM 3.2 cm LA Ao Ratio MM 1.3 AV Cusp Separation MM 2.2 cm DOPPLER AV Peak Velocity 127.0 cm/s AV Peak Gradient 6.5 mmHg AV Mean Gradient 4.0 mmHg AV Velocity Time Integral 36.6 cm LVOT Peak Velocity 88.8 cm/s LVOT Peak Gradient 3.2 mmHg LVOT Velocity Time Integral 23.9 cm LVOT Cardiac Index 1667.8 cm?/min?m? AV Area Cont Eq vti 0.9 cm? AV Area Cont Eq pk 0.9 cm? MV Area PHT 3.8 cm? Mitral E Point Velocity 95.6 cm/s Mitral A Point Velocity 119.0 cm/s Mitral E to A Ratio 0.8 LV E' Lateral Velocity 5.8 cm/s Mitral E to LV E' Lateral Ratio 16.6 LV E' Septal Velocity 5.8 cm/s Mitral E to LV E' Septal Ratio 16.6 TR Peak Velocity 239.0 cm/s TR Peak Gradient 22.8 mmHg PV Peak Velocity 93.7 cm/s PV Peak Gradient 3.5 mmHg FINDINGS Left Ventricle Normal left ventricular size and systolic function with no obvious regional wall motion abnormalities. Mild LVH. The ejection fraction is visually estimated at 55-60 %. There is grade I diastolic dysfunction of the left ventricle (impaired relaxation pattern). Right Ventricle The right ventricle is normal in size and systolic function. The estimated right ventricular systolic pressure, 28 mmHg. RAP 5. Left Atrium The left atrium is normal by two-dimensional, color flow and Doppler imaging with no structural abnormalities, no thrombus formation present. Right Atrium The right atrium is normal by two-dimensional imaging, color flow and Doppler imaging with no structural abnormalities, no thrombus formation present. Atrial Septum The interatrial septum appears normal with no evidence of a shunt. Aorta The aorta is normal by two-dimensional, color flow and Doppler interrogation. Mitral Valve The mitral valve is normal by two-dimensional, color flow and Doppler interrogation. There is no significant mitral valve regurgitation, stenosis or prolapse. Aortic Valve The aortic valve is trileaflet and normal by two-dimensional, color flow and Doppler interrogation. There is no significant aortic valve regurgitation. Tricuspid Valve The tricuspid valve is normal by two-dimensional, color flow and Doppler interrogation. There is trace tricuspid valve regurgitation. Pulmonic Valve The pulmonic valve is not well visualized. There is no significant pulmonic valve regurgitation. Vessels The pulmonary artery appears normal. The inferior vena cava pulmonary and hepatic veins appear normal. Pericardium The pericardium is normal by two-dimensional imaging. There is no significant pericardial effusion. CONCLUSIONS Indication: stroke Bubble study negative for any PFO or ASD. No evidence of any LA or LA thrombus. Normal LV size and function. Mild LVH. Estimated EF of 60 to 65%. Grade 1 diastolic dysfunction. Normal RV size and function. Estimated RVSP of 28 mmHg. Trace MR and TR. No pericardial effusion. Kamaljit Maldonado (Electronically Signed) Final Date: 16 April 2025 08:53
[2025-04-14 15:43] LABS: Cardiac Risk Estimate 4.8 RATIO (3.7-5.6); Cholesterol 159 mg/dL (132-200); HDL Cholesterol 33 mg/dL (40-60); Thyroid Stimulating Hormone 2.75 uIU/mL (0.55-4.78); Triglycerides 450 mg/dL (30-150)
[2025-04-14 15:50] LABS: Glucose Estimated Average 209 mg/dL (80-131); Hemoglobin A1C 8.9 % Hgb (4.8-6.0)
[2025-04-14 15:53] VITALS: BP 108/71; PULSE 63; RESP 20; TEMP 36.4; O2SAT 94
[2025-04-14] MEDS: ATORVASTATIN CALCIUM 10 MG TABLET 40 MG PO (16:10)
--- NOTE | 2025-04-14 16:12 | PC.CC ---
Patient is a 74 year-old female who presents to the hospital for left side numb and dizziness. MARLENWPriyanka and LAB AID Student Terra made [id number] contact with patient. ASW introduced self, role, and reason for visit. Patient appeared alert and oriented to self, location, and situation. Patient provided consent for LAB AID to remain in the room during assessment. Patient was pleasant and engaged in initial assessment. Patient confirmed information on demographics and reports to living at home with her daughter, Olive Myers . Patient reports her medical decision maker in the event she is unable to make her own medical decisions would be her daughter, Olive. Patient reports she is able to ambulate independently and complete her own ADLs. Patient does not require any DME and reports to not having any other medical conditions. Patient's primary provider is Luz Maria Patino and pharmacy of choice is [facility]. Upon discharge patient plans to return back home. building services supervisor to follow up with any discharge needs.
[2025-04-14 17:53] LABS: Collection Type, Urine Clean Catch
[2025-04-14 18:15] LABS: Bacteria,Urine 1+; Bilirubin,Urine Negative (Negative); Blood,Urine Negative (Negative); Clarity,Urine Clear (Clear/Hazy); Color,Urine Lt-Yellow (Lt Yel-Yel); Glucose, Urine Negative (Negative); Hyaline Casts,Urine < 1 /hpf (0-1); Ketones,Urine Negative (Negative); Leukocyte Esterase,Urine Negative (Negative); Nitrite,Urine Negative (Negative); PH,Urine 5.5 (5.0-7.0); Protein,Urine Negative (Neg - Trace); RBC,Urine 1 /hpf (0-3); Specific Gravity,Urine 1.015 (1.001-1.035); Squamous Epithelial Cell,Urine 2 /hpf (0-5); Urobilinogen,Urine Negative mg/dL (0.0-1.0); WBC,Urine 2 /hpf (0-5)
[2025-04-14 18:23] LABS: Amphetamine/Methamp Scrn,U Negative (Negative); Barbiturate Screen,Urine Negative (Negative); Benzodiazepines Screen,Urine Positive (Negative); Benzoylecgonine Screen, Ur Negative (Negative); Fentanyl Screen,Urine Negative (Negative); Opiate Screen,Urine Negative (Negative); THC Screen,Urine Negative (Negative)
[2025-04-14 18:37] VITALS: BP 133/67; PULSE 65; RESP 18; TEMP 36.4; O2SAT 95
--- NOTE | 2025-04-14 19:38 | PC.NURSE ---
PATIENT ARRIVED AT 1852, [facility] PERFORM AT BEDSIDE WITH NOC NURSE, ALEKS ROMO. PT ALERT AND ORIENTED X4 REPORTS WEAKNESS TO LEFT SIDE.
[2025-04-14 20:00] VITALS: BP 135/75; PULSE 62; PULSE 65; RESP 20; TEMP 36.1; O2SAT 94
--- NOTE | 2025-04-14 20:11 | PD.RESCONSUL ---
HPI Data of Consult Requesting Physician: Kristnia Kim DO Admitting Provider: Kristina Kim DO Attending Provider: Kristina Kim DO Primary Care Provider: Luz Maria Patino PA-C Consult Narrative History of present illness: Mr. Garduno is a 74-year-old woman with a history of hypertension,diabetes insulin, fibromyalgia, and history of spinal cyst 2 inches with surgery in [address] Gavin. Patient reports recent fall within the past month with head strike. She reports that she was hospitalized at [facility] 04/08 and underwent stroke workup for presentation of left upper and lower paresthesias, that resolved, but stroke workup was negative and they discharged her with aspirin, Plavix, and statin. She reports that 9 AM today she was feeling well she went to prepare her breakfast and started to feel lightheaded. She states that she began to experience left-sided upper extremity and lower extremity heaviness which prompted her to sit down. She states that this left-sided sensation is different from what she experienced on 04/08. Patient patient examined at bedside. She reports continued left-sided paresthesias and heaviness in her arm and leg, but denies symptoms in her face. She reports that she has glaucoma in her right eye that causes central vision loss for which she is seeing an binding stitcher. She notes that she is feeling a bit better than this morning and has an appetite. She denies headache, nausea, vomiting, dizziness, acute changes in vision, palpitations, abdominal pain, right-sided paresthesias or weakness. cc:: cc: Kristina Kim DO Review of Systems Review of Systems Narrative Review of Systems: 14 point review system negative other than HPI Exam Vital Signs Temp Pulse Resp BP Pulse Ox O2 Del Method 97.6 F 65 18 133/67 H 95 Room Air 04/14/25 18:37 04/14/25 18:37 04/14/25 18:37 04/14/25 18:37 04/14/25 18:37 04/14/25 18:37 Narrative Exam General: No acute distress, well nourished Eye: PERRL, EOMI, normal conjunctiva, no scleral icterus HENT: Normocephalic, atraumatic, hearing intact to conversation at normal volume, moist oral mucosa Neck: Supple, non-tender, no JVD, no lymphadenopathy Lungs: Non-labored respirations, symmetric chest rise Heart: Peripheral pulses intact bilaterally Abdomen: Soft, non-tender, non-distended Musculoskeletal: Normal range of motion and strength Skin: Skin is warm, dry, no rashes or lesions. Psychiatric: Cooperative, appropriate mood and affect Neurologic: Mental status: Orientation: Oriented to person, place, time, and situation Communication: Patient is cooperative and can follow simple instructions Language: Speech fluent, normal rate and volume, comprehension intact Cranial nerves: CN II: Visual barajas intact in left eye. Patient has central vision loss in her right eye secondary to glaucoma, intact peripheral vision. (chronic) CN III: Pupils equal, round, and reactive to light CN III, IV, : No gaze deviation, no nystagmus Horizontal pursuit: intact Vertical pursuit: intact Ptosis: none CN V: Facial sensation to light touch intact bilaterally at the forehead, cheeks, and jaw line CN VII: Face symmetric, no facial droop appreciated CN VIII: Able to hear and respond to conversation at normal volume, intact to finger rub CN IX, X: Palate elevation symmetric, uvula midline CN XI: Head turn and shoulder shrug strong, symmetric bilaterally CN XII: Normal tongue protrusion without deviation, no fasciculations Motor: Normal bulk and tone No atrophy No abnormal movements or fasciculations Muscle strength: Shoulder abduction: R 5/5 L 5/5 Elbow flexion: R 5/5 L 5/5 Elbow extension: R 5/5 L 5/5 Hip flexion: R 5/5 L 4/5 Hip extension: R 5/5 L 4/5 Knee flexion: R 5/5 L 4/5 Knee extension: R 5/5 L 4/5 Patient able to sit on edge of bed and stand with support. She was able to take 1-2 steps with support, though felt off balance. Sensory: Light touch intact in right upper and lower extremity, decreased in left upper and lower extremity. Reflexes: Biceps (C5-6): R 2+ L 2+ Brachioradialis (C5-6): R 2+ L 2+ Triceps (C7-8): R 2+ L 2+ Patellae (L3-4): R 2+ L 2+ Achilles (S1-2):R 2+ L 2+ Cerebellum: RUE: No dysmetria (finger to nose) LUE: No dysmetria (finger to nose) RLE: No dysmetria (heel to shipley) LLE: Unable to assess due to weakness. Results Labs 04/15/25 04:40 04/15/25 04:40 Labs: Short CBC 04/14/25 Range/Units 13:01 WBC 11.2 H (3.6-11.0) Thou/mm3 Hgb 13.4 (12.0-16.0) g/dL Hct 38.6 (36.0-46.0) % Plt Count 191 (140-440) Thou/mm3 BMP 04/14/25 13:01 Sodium 140 Potassium 4.3 Chloride 107 Carbon Dioxide 21.5 BUN 19 Creatinine 1.3 Glucose 172 H Calcium 8.9 Cardiac Enzymes 04/14/25 Range/Units 13:01 Troponin I < 0.020 (0.0-0.045) ng/mL Liver Function 04/14/25 Range/Units 13:01 Total Bilirubin 0.6 (0.3-1.2) mg/dL AST 41 H (0-34) U/L ALT 32 (10-49) U/L Alkaline Phosphatase 99 (46-116) U/L Albumin 3.9 (3.4-4.8) gm/dL Urine 04/14/25 Range/Units 17:31 Urine Color Lt-Yellow (Lt Yel-Yel) Urine Clarity Clear (Clear/Hazy) Urine pH 5.5 (5.0-7.0) Ur Specific [place] 1.015 (1.001-1.035) Urine Protein Negative (Neg - Trace) Urine Glucose (UA) Negative (Negative) Quality Measures Quality Measures none Advance care planning discussed with:: patient and sibling Medications Home Medications and Allergies Home Medications ?Medication ?Instructions ?Recorded ?Confirmed ?Type pravastatin 80 mg tablet 80 mg PO HS #0 tabs 01/20/17 04/14/25 History (Pravachol) temazepam 30 mg capsule (Restoril) 30 mg PO HS #0 caps 01/20/17 04/14/25 History buprenorphine HCl 150 mcg buccal 150 mcg buccal Q12H 05/15/20 04/14/25 History film (Belbuca) clonidine HCl 0.1 mg tablet 0.1 mg PO BID 05/15/20 04/14/25 History sitagliptin phosphate 100 mg 100 mg PO QDAY 05/15/20 04/14/25 History tablet (Januvia) benazepril 20 mg tablet 20 mg PO QDAY 05/16/20 04/14/25 History magnesium 200 mg tablet 200 mg PO QDAY 05/16/20 04/14/25 History cholecalciferol (vitamin D3) 125 125 mcg PO BID 12/11/20 04/14/25 History mcg (5,000 unit) tablet (Vitamin D3) cyanocobalamin (vitamin B-12) 5,000 mcg PO BID 12/11/20 04/14/25 History 5,000 mcg sublingual tablet (Vitamin B-12) glipizide 10 mg tablet 10 mg PO BID 12/11/20 04/14/25 History insulin glargine U-300 conc 300 40 unit subcut HS 12/11/20 04/15/25 History unit/mL (1.5 mL) subcutaneous pen (Toujeo SoloStar U-300 Insulin) latanoprost 0.005 % eye drops 1 drp ophthalmic (eye) QPM 12/11/20 04/15/25 History pregabalin 300 mg capsule 300 mg PO BID 12/11/20 04/14/25 History timolol maleate 0.5 % once daily 1 drp ophthalmic (eye) BID 12/11/20 04/14/25 History eye drops turmeric root extract 500 mg 500 mg PO BID 12/11/20 04/14/25 History capsule estradiol 1 mg tablet 1 mg PO HS 04/14/25 04/14/25 History finerenone 10 mg tablet (Kerendia) 10 mg PO HS 04/14/25 04/14/25 History insulin glargine U-300 conc 300 40 unit subcut HS 04/14/25 04/14/25 History unit/mL (3 mL) subcutaneous pen (Toujeo Max U-300 SoloStar) semaglutide 0.25 mg or 0.5 mg (2 0.5 mg subcut QWEEK 04/14/25 04/14/25 History mg/3 mL) subcutaneous pen injector (Ozempic) Allergies Allergy/AdvReac Type Severity Reaction Status Date / Time fentanyl Allergy Unknown VOMITING Verified 04/14/25 12:08 acetaminophen (From Vicodin) Allergy Rash Verified 04/14/25 12:08 hydrocodone AdvReac Mild Itching Verified 04/14/25 12:08 Visit Medications Aspirin (Aspirin Ec 81 Mg Tabec) 81 mg PO QDAY [facility] Stop: 05/15/25 08:59 Atorvastatin Calcium (Atorvastatin Calcium 10 Mg Tablet) 40 mg PO DAILY [facility] Stop: 05/14/25 15:14 Last Admin: 04/14/25 16:10 Dose: 40 mg Clopidogrel Bisulfate (Clopidogrel Bisulfate 75 Mg Tablet) 75 mg PO QDAY [facility] Stop: 05/15/25 08:59 Dextrose (Dextrose 50%-Water Inj 50 Ml Syringe) 25 ml IV Q15MIN PRN PRN Reason: BG 50-70 responsive npo pt Stop: 05/14/25 15:22 Dextrose (Dextrose 50%-Water Inj 50 Ml Syringe) 50 ml IV Q15MIN PRN PRN Reason: BG <50 OR BG <70 & pt unresponsive Stop: 05/14/25 15:22 Glucagon (Glucagon Inj 1 Mg Vial) 1 mg IM Q15MIN PRN PRN Reason: BG <70, and no IV access Heparin Sodium (Porcine) (Heparin Sod Inj 5000 Unit/Ml Vial) 5,000 unit SC Q12HR [facility] Stop: 04/28/25 20:59 Hydralazine HCl (Hydralazine Inj 20 Mg/Ml Vial) 10 mg IVP Q8HR PRN PRN Reason: Blood Pressure - High >180 Stop: 05/14/25 16:19 Insulin Glargine (Insulin Glargine (Lantus) 5 Unit/0.05 Ml (Per 5 Units)) 20 unit SC QDAY [facility] Stop: 05/15/25 08:59 Insulin Human Lispro (Insulin Lispro (Admelog) 1 Unit/0.01 Ml Unit) 0 unit SC Q6HR [facility]; Protocol Stop: 05/14/25 17:59 Latanoprost (Latanoprost Op Nancy 0.005% 2.5 Ml Btl) 1 drop BOTH EYES QPM [facility] Stop: 05/14/25 20:59 Ondansetron HCl (Ondansetron Inj 2 Mg/Ml Inj 2 Ml) 4 mg IVP Q4HR PRN PRN Reason: NAUSEA OR VOMITING Stop: 05/14/25 12:33 Pantoprazole Sodium (Pantoprazole Inj 40 Mg Vial) 40 mg IVP QDAY [facility] Stop: 05/14/25 19:59 Timolol Maleate (Timolol Op Nancy 0.5% 5 Ml Btl) 1 drop BOTH EYES BID ANTONIO Stop: 05/14/25 20:59 Discontinued Medications Aspirin (Aspirin Ec 81 Mg Tabec) 81 mg PO X1 ONE Stop: 04/15/25 08:01 Clopidogrel Bisulfate (Clopidogrel Bisulfate 75 Mg Tablet) 300 mg PO X1 ONE Stop: 04/14/25 12:54 Last Admin: 04/14/25 13:13 Dose: 300 mg Magnesium Sulfate (Magnesium Sulfate Ivpb) 2 gm in 50 mls @ 25 mls/hr IV X1 ONE Stop: 04/14/25 16:02 Last Infusion: 04/14/25 16:15 Dose: Infused Labetalol HCl (Labetalol Inj 5 Mg/Ml Vial 20 Ml) 10 mg IVP Q15M PRN PRN Reason: HYPER Assessment & Plan Plan # 5 mm acute infarct right thalamus #Hyperlipidemia Hx stroke/TIA: Previously admitted to [facility] 6 days ago for left-sided paresthesias. Stroke workup negative, started on aspirin and Plavix for 21 days, started on statin. Hx afib: none Initial symptoms: Left-sided paresthesias, left-sided heaviness and LUE and LLE Symptom status: Improving, patient continues to decreased light touch sensation, weakness, tingling in the left UE and LE, though patient able to stand and strength improving LKAW: 9 AM 04/14 Initial NIHSS: 5 Inital BP: 107/69 EKG: NSR, HR 72, QTc 461 Initial glucose: 172 UDS: + Benzodiazepines (home med includes temazepam) A1C: 8.9 Lipids: Triglycerides high 450, cholesterol 159 WNL, (LDL unable to be calculated as triglycerides > 400), HDL low 33 TSH: 2.75 WNL Troponin: Negative x 1 CT head w/o: Negative for acute hemorrhage, midline shift, mass effect CTA head/neck w/: pending MRI/MRA w/ and w/o: 5 mm acute infarct right thalamus TTE: pending Meds given: Clopidogrel 300 mg bolus x1, atorvastatin 40 mg, mag sulfate 29 mg x 1 ABCD2 score (risk of stroke after suspected TIA): ASCVD: 24.4% risk of CV event in 10 years --> high intensity statin DDX: vessel atherosclerosis (thrombus), small vessel (lacunar) disease, cardioembolic Plan: - Continue aspirin 81 mg daily and clopidogrel 75 mg daily, high intensity statin - Pending CTA, TTE #Spinal Cyst per pt report she has hx of spinal cyst, unclear at what spinal level with hx of back surgery in 1991. per patient in 2008 he found recurrence of the cyst. She states that the cyst is now 2 inches. She denies any red flag symptoms of saddle anesthesia, bowel or bladder incontinence. Plan: - Nothing to do at this time, f/u outpatient #Fibromyalgia Plan: -Management per primary - Lyrica 300mg #T2DM on insulin per patient she takes insulin long acting 40 unitis at night and glipizide 10 mg PO BID, Stitagliptin (Januvia) A1C: 8.9 Plan: - Management per primary #HTN Plan: -Management per primary #R eye Glaucoma Patient follows with binding stitcher Patient has decreased central vision in right eye, intact peripheral vision in right eye. Left eye unaffected. Plan: -Management per primary - latanoprost 1 drop qd, timolol 1 drop qd #insomnia Plan: - Management per primary - HOLD temazepam 30 mg qhs Plan discussed with Dr.Thiagarajan Daily López, PGY1 Attending Provider Attestation/Addendum I personally have seen and examined the patient at the bedside and I agree with the resident's findings assessment and plan of care. The MRI brain showed acute infarction in the right thalamus, contribute to left-sided hemiparesthesias. Continue with Plavix and statin Follow-up with rest of the workup including TTE
[2025-04-14] MEDS: TIMOLOL OP SOL 0.5% 5 ML BTL 1 DROP BOTH EYES (20:29)
[2025-04-14] MEDS: LATANOPROST OP SOL 0.005% 2.5 ML BTL 1 DROP BOTH EYES (20:35)
[2025-04-14] MEDS: HEPARIN SOD INJ 5000 UNIT/ML VIAL SC (20:39)
[2025-04-14 23:17] VITALS: BP 154/78; PULSE 63; RESP 15; TEMP 36; O2SAT 94
--- NOTE | 2025-04-14 23:45 | PC.NURSE ---
PER CT ANGIO TECH ON DUTY,PREVIOUS ORDER CT ANGIO WAS CANCELLED BY ER MD.HOSPITALIST MADE AWARE THAT NEEDS TO REORDER.MD PROMISED TO INFORM DAY SHIFT MD ON DUTY.
[2025-04-15] VITALS: BP 148/70; PULSE 65; PULSE 86; RESP 16; TEMP 36.1; O2SAT 95
[2025-04-15] MEDS: METOCLOPRAMIDE INJ 5 MG/ML VIAL 2 ML IVP (00:16)
[2025-04-15] MEDS: TEMAZEPAM 15 MG CAPSULE 30 MG PO ×2 (00:58→20:43)
[2025-04-15 04:00] VITALS: BP 115/63; PULSE 71; PULSE 72; RESP 15; TEMP 36.1; O2SAT 96
[2025-04-15 06:10] LABS: Basophils # (Auto) 0.0 Thou/mm3 (0.0-0.2); Basophils % (Auto) 0 % (0-2.5); Eosinophils # (Auto) 0.1 Thou/mm3 (0.0-0.5); Eosinophils % (Auto) 1 % (0-10); Hematocrit 37.7 % (36.0-46.0); Hemoglobin 12.9 g/dL (12.0-16.0); Immature Granulocytes Auto 0.02 Thou/mm3 (0.00-0.00); Lymphocytes # (Auto) 3.9 Thou/mm3 (1.0-4.8); Lymphocytes % (Auto) 44 % (10-50); Mean Corpuscular HGB Conc 34.2 g/dl (31.0-37.0); Mean Corpuscular Hemoglobin 29.7 pg (25.0-35.0); Mean Corpuscular Volume 87 fL (80-100); Monocytes # (Auto) 0.7 Thou/mm3 (0.0-0.8); Monocytes % (Auto) 8 % (0-12); Neutrophils # (Auto) 4.1 Thou/mm3 (1.8-7.7); Neutrophils % (Auto) 46 % (37-80); Nucleated Red Blood Cell # 0.00 Thou/mm3 (0.00-0.00); Nucleated Red Blood Cell % 0 /100 WBC (0); Platelet Count 197 Thou/mm3 (140-440); RDW Standard Deviation 41.1 fL (36.4-46.3); Red Blood Count 4.35 Miln/mm3 (4.00-5.20); White Blood Count 8.8 Thou/mm3 (3.6-11.0)
[2025-04-15 06:45] LABS: Alanine Aminotransferase 28 U/L (10-49); Albumin, Serum 3.4 gm/dL (3.4-4.8); Albumin/Globulin Ratio 1.3 (1.2-2.2); Alkaline Phosphatase 87 U/L (46-116); Anion Gap 11 (7-16); Aspartate Amino Transferase 36 U/L (0-34); BUN/Creatinine Ratio 16 Ratio (12-20); Bilirubin,Total 0.7 mg/dL (0.3-1.2); Blood Urea Nitrogen 19 mg/dL (9-23); Calcium 8.4 mg/dL (8.3-10.6); Calcium (Corrected) 8.9 mg/dL (8.5-10.1); Carbon Dioxide 21.5 mMol/L (20.0-31.0); Chloride 107 mMol/L (98-107); Creatinine (Component) 1.2 mg/dL (0.6-1.3); Estimated Creatinine Clearance 38.5 mL/min (>60); Globulin 2.6 gm/dL (2.3-3.5); Glucose 134 mg/dL (74-106); Magnesium 1.7 mg/dL (1.6-2.6); Osmolality,Calculated 281 (275-295); Phosphorous 2.4 mg/dL (2.4-5.1); Potassium 4.1 mMol/L (3.4-5.1); Sodium 139 mMol/L (136-145); Total Protein 6.0 gm/dL (5.7-8.2); eGFR 48 See Note
[2025-04-15 08:00] VITALS: BP 129/77; PULSE 70; PULSE 76; RESP 14; TEMP 36.1; O2SAT 96
[2025-04-15] MEDS: PREGABALIN 75 MG CAPSULE 300 MG PO ×2 (08:09→20:43)
[2025-04-15] MEDS: ATORVASTATIN CALCIUM 10 MG TABLET 40 MG PO (08:09)
[2025-04-15] MEDS: HEPARIN SOD INJ 5000 UNIT/ML VIAL SC (08:10)
[2025-04-15] MEDS: INSULIN GLARGINE (Lantus) 5 UNIT/0.05 ML (PER 5 UNITS) 20 UNIT SC (08:10)
[2025-04-15] MEDS: ASPIRIN EC 81 MG TABEC PO (08:10)
[2025-04-15] MEDS: CLOPIDOGREL BISULFATE 75 MG TABLET PO (08:10)
[2025-04-15] MEDS: TIMOLOL OP SOL 0.5% 5 ML BTL 1 DROP BOTH EYES ×2 (08:11→20:42)
[2025-04-15 10:09] VITALS: BMI 24.0
--- NOTE | 2025-04-15 10:17 | ESPR_ITS ---
Documentation for date of: 04/15/25 Subjective Subjective Interval history: Patient states she feels better this morning. She reports that the weakness in her left arm and leg has resolved, though she continues to experience some heaviness isolated to her left thigh. Denies any numbness, tingling, trouble speaking, facial droop, dizziness, or lightheadedness. Vision is now clear with no residual cloudiness. She also denies headache, chest pain, or shortness of breath. Reports feeling more alert and oriented today. No nausea, vomiting, or fever. She states she has been able to use the restroom and ambulate without difficulty. Appetite and energy improving. Exam Vital Signs Temp Pulse Resp BP Pulse Ox O2 Del Method 96.9 F 70 14 129/77 96 Room Air 04/15/25 08:00 04/15/25 08:00 04/15/25 08:00 04/15/25 08:00 04/15/25 08:00 04/15/25 08:00 Narrative Exam General: No acute distress, alert and oriented ?3, conversant at bedside HEENT: Normocephalic, atraumatic; PERRL; EOMI; no facial asymmetry Neck: Supple, no JVD, no lymphadenopathy, no carotid bruits Cardiovascular: RRR, normal S1/S2, no murmurs, rubs, or gallops; no LE edema Respiratory: Clear to auscultation bilaterally, non-labored breathing GI: Abdomen soft, non-tender, non-distended, normal bowel sounds MSK: No joint swelling or deformity; able to ambulate with steady gait Neuro: CN II-XII grossly intact; strength 5/5 in bilateral upper extremities and right lower extremity; left lower extremity strength 4+/5 with reported heaviness in left thigh; no sensory deficits noted; normal coordination and speech Psych: Pleasant, appropriate affect, normal mood Skin: Warm, dry, no rashes or lesions Objective Labs 04/16/25 05:04 04/16/25 05:04 Labs: Laboratory Results - last 24 hr 04/14/25 04/14/25 04/15/25 13:01 17:31 04:40 WBC 11.2 H 8.8 RBC 4.54 4.35 Hgb 13.4 12.9 Hct 38.6 37.7 MCV 85 87 MCH 29.5 29.7 MCHC 34.7 34.2 RDW Std Deviation 41.2 41.1 Plt Count 191 197 Neut % (Auto) 58 46 Lymph % (Auto) 32 44 [place] % (Auto) 8 8 Eos % (Auto) 1 1 Baso % (Auto) 0 0 Neut # (Auto) 6.5 4.1 Lymph # (Auto) 3.6 3.9 [place] # (Auto) 0.9 H 0.7 Eos # (Auto) 0.2 0.1 Baso # (Auto) 0.0 0.0 Immature Gran # (Auto) 0.04 H 0.02 H Absolute Nucleated RBC 0.00 0.00 Immature Gran % 0 0 Nucleated RBC % 0 0 PT 10.9 INR 1.0 APTT 27.9 Sodium 140 139 Potassium 4.3 4.1 Chloride 107 107 Carbon Dioxide 21.5 21.5 Anion Gap 12 11 BUN 19 19 Creatinine 1.3 1.2 Estim Creat Clear Calc 35.5 L 38.5 L eGFR 43 L 48 L BUN/Creatinine Ratio 15 16 Glucose [address] Glu mg/dL 209 H Hemoglobin A1c 8.9 H Calculated Osmolality 285 281 Calcium 8.9 8.4 Corrected Calcium 9.0 8.9 Phosphorus 2.4 Magnesium 1.2 L 1.7 Total Bilirubin 0.6 0.7 AST 41 H 36 H ALT 32 28 Alkaline Phosphatase 99 87 Troponin I < 0.020 Total Protein 6.6 6.0 Albumin 3.9 3.4 D Globulin 2.7 2.6 Albumin/Globulin Ratio 1.4 1.3 Triglycerides 450 H Cholesterol 159 LDL Cholesterol, Calc TNP HDL Cholesterol 33 L Cholesterol/HDL Ratio 4.8 TSH 2.75 Ur Collection Type Clean Catch Urine Color Lt-Yellow Urine Clarity Clear Urine pH 5.5 Ur Specific [place] 1.015 Urine Protein Negative Urine Glucose (UA) Negative Urine Ketones Negative Urine Blood Negative Urine Nitrite Negative Urine Bilirubin Negative Urine Urobilinogen (Auto) Negative Ur Leukocyte Esterase Negative Urine RBC 1 Urine WBC 2 Ur Squamous Epith Cells 2 Urine Bacteria 1+ A Hyaline Casts < 1 Urine Opiates Screen Negative Urine Fentanyl Screen Negative Ur Barbiturates Screen Negative U Amphetamin/Meth Scrn Negative U Benzodiazepines Scrn Positive A U Cocaine Metab Screen Negative U Marijuana (THC) Screen Negative HCG (Qual) Negative Quality Measures Quality Measures VTE prophylaxis Advance care planning discussed with:: patient Assessment & Plan Assessment Current Active Medications: Generic Name Dose Route Start Last Admin Trade Name Ken PRN Reason Stop Dose Admin Aspirin 81 mg 04/15/25 09:00 04/15/25 08:10 Aspirin Ec 81 Mg Tabec PO 05/15/25 08:59 81 mg QDAY ANTONIO Administration Atorvastatin Calcium 40 mg 04/14/25 15:15 04/15/25 08:09 Atorvastatin Calcium 10 Mg Tablet PO 05/14/25 15:14 40 mg DAILY ANTONIO Administration Clopidogrel Bisulfate 75 mg 04/15/25 09:00 04/15/25 08:10 Clopidogrel Bisulfate 75 Mg Tablet PO 05/15/25 08:59 75 mg QDAY ANTONIO Administration Dextrose 25 ml 04/14/25 15:23 Dextrose 50%-Water Inj 50 Ml Syringe IV 05/14/25 15:22 Q15MIN PRN BG 50-70 responsive npo pt Dextrose 50 ml 04/14/25 15:23 Dextrose 50%-Water Inj 50 Ml Syringe IV 05/14/25 15:22 Q15MIN PRN BG <50 OR BG <70 & pt unresponsive Glucagon 1 mg 04/14/25 15:23 Glucagon Inj 1 Mg Vial IM Q15MIN PRN BG <70, and no IV access Heparin Sodium (Porcine) 5,000 unit 04/14/25 21:00 04/15/25 08:10 Heparin Sod Inj 5000 Unit/Ml Vial SC 04/28/25 20:59 5,000 unit Q12HR ANTONIO Administration Hydralazine HCl 10 mg 04/14/25 16:20 Hydralazine Inj 20 Mg/Ml Vial IVP 05/14/25 16:19 Q8HR PRN Blood Pressure - High >180 Insulin Glargine 20 unit 04/15/25 09:00 04/15/25 08:10 Insulin Glargine (Lantus) 5 Unit/0.05 Ml (Per 5 Units) SC 05/15/25 08:59 20 unit QDAY ANTONIO Administration Insulin Human Lispro 0 unit 04/14/25 18:00 04/15/25 08:07 Insulin Lispro (Admelog) 1 Unit/0.01 Ml Unit SC 05/14/25 17:59 Not Given Q6HR [facility] Protocol Latanoprost 1 drop 04/14/25 21:00 04/14/25 20:35 Latanoprost Op Nancy 0.005% 2.5 Ml Btl BOTH EYES 05/14/25 20:59 1 drop QPM ANTONIO Administration Ondansetron HCl 4 mg 04/14/25 12:34 Ondansetron Inj 2 Mg/Ml Inj 2 Ml IVP 05/14/25 12:33 Q4HR PRN NAUSEA OR VOMITING Pantoprazole Sodium 40 mg 04/14/25 20:00 04/15/25 08:08 Pantoprazole Inj 40 Mg Vial IVP 05/14/25 19:59 40 mg QDAY ANTONIO Administration Pregabalin 300 mg 04/15/25 09:00 04/15/25 08:09 Pregabalin 75 Mg Capsule PO 05/15/25 08:59 300 mg BID ANTONIO Administration Temazepam 30 mg 04/15/25 21:00 Temazepam 15 Mg Capsule PO 04/20/25 20:59 HS ANTONIO Timolol Maleate 1 drop 04/14/25 21:00 04/15/25 08:11 Timolol Op Nancy 0.5% 5 Ml Btl BOTH EYES 05/14/25 20:59 1 drop BID ANTONIO Administration Plan 74F with PMH of HTN, DM2 on insulin, fibromyalgia, spinal cyst s/p surgery, presenting with acute LUE and LLE weakness/heaviness found to have 5 mm acute infarct in right thalamus. Symptoms now improved with residual left thigh heaviness. No new deficits today. Feels more alert and stronger. #Acute Ischemic Stroke ? 5 mm infarct in right thalamus Improved strength, no new deficits, continues to endorse heaviness in left thigh only Plan: * Continue aspirin 81 mg daily and clopidogrel 75 mg daily * Atorvastatin 40 mg HS * Head of bed at 30? * Neuro checks Q4 hours * Permissive hypertension ? continue to hold home antihypertensives * Keep euglycemic * Avoid hyperthermia ? allergic to APAP * Echo pending ? await final read * PT to evaluate and clear for safe ambulation * Follow-up on neurology recommendations per inpatient consult #Leukocytosis (resolved) Initial mild leukocytosis on admission; currently resolved wbc at 8.8 Plan: * Monitor trend * UA and UCx negative * No signs of infection on exam #Spinal Cyst Chronic issue, no current red flag symptoms, mild residual left thigh heaviness could be related but unlikely acute Plan: * No acute intervention * Continue outpatient follow-up with neuro/spine as previously arranged #Type 2 Diabetes Mellitus A1c 8.9%, patient on insulin and oral agents Plan: * SSI * Continue home meds: insulin 40 units nightly, glipizide, sitagliptin * Monitor glucose Q6hr #Hypertension Permissive hypertension strategy for 24 hours Blood pressure this morning is 129/77 Plan: * Hold benazepril * Monitor BP, PRN hydralazine for SBP >180 #Hyperlipidemia Triglycerides 450, HDL 33 Plan: * Continue high-intensity statin (atorvastatin 40 mg daily) * Lifestyle education on discharge #Fibromyalgia Chronic, managed by primary Plan: * Continue Lyrica 300 mg daily #Right Eye Glaucoma Chronic, stable, under disc pad plate filler care Plan: * Continue latanoprost and timolol drops #Insomnia On temazepam at home Plan: * Continue to hold temazepam inpatient #Vaginal Prolapse Managed outpatient Plan: * Continue estradiol Health Maintenance: Disposition: Await PT clearance, pending MRI/echo/neurology follow-up Feeding: Carb-controlled diet, tolerating PO Thromboprophylaxis: Heparin 5000 SC GI prophylaxis: Pantoprazole 40 mg daily Code Status: Full ----- Plan discussed with attending physician Dr. Julio Resendez MD PGY-1 Internal Medicine Attending Provider Attestation/Addendum Piter, Kristina Kim DO, attest that I was physically present for the trujillo portions of the service and evaluated the patient with the resident and I reviewed and discussed the case with the resident and agree with the resident's findings and plans of care as documented above Patient seen eval this a.m. She reports some heaviness in her left thigh, but is able to lift her left leg in comparison to yesterday. Muscle strength is 4+ out of 5 in all 4 extremities. Gross sensation is intact. Patient reports feeling well and has been able to walk to the bathroom with assistance. She is currently pending physical therapy. MRI was done yesterday showing 5 mm infarct in the right thalamus consistent with her symptoms. Will follow-up with neurology recommendations and pending echocardiogram. Anticipate discharge within the next 24 hours once workup is complete.
[2025-04-15 12:00] VITALS: BP 131/70; PULSE 77; PULSE 82; RESP 16; TEMP 36.2; O2SAT 95
[2025-04-15 16:00] VITALS: BP 129/56; PULSE 72; PULSE 73; RESP 19; TEMP 36.4; O2SAT 95
[2025-04-15] MEDS: ACETAMINOPHEN 325 MG TABLET 650 MG PO (16:54)
[2025-04-15] MEDS: INSULIN LISPRO (AdmeLOG) 1 UNIT/0.01 ML UNIT SC ×2 (18:03→23:53)
[2025-04-15 20:00] VITALS: BP 148/75; PULSE 68; PULSE 74; RESP 18; TEMP 36.1; O2SAT 95
[2025-04-15] MEDS: LATANOPROST OP SOL 0.005% 2.5 ML BTL 1 DROP BOTH EYES (20:42)
--- NOTE | 2025-04-15 23:50 | PD.VPROG1 ---
Telemedicine visit statement This visit was conducted with the use of phone was obtained on 04/15/25 at 2350. Documentation for date of: 04/15/25 Subjective Subjective Interval history: Patient is in telemetry. No new symptoms or recurrence of similar symptoms of left-sided numbness or weakness. Virtual exam Vital Signs Temp Pulse Resp BP Pulse Ox O2 Del Method 97.0 F 74 18 148/75 H 95 Room Air 04/15/25 20:00 04/15/25 20:00 04/15/25 20:00 04/15/25 20:00 04/15/25 20:00 04/15/25 20:00 Objective Labs 04/16/25 05:04 04/16/25 05:04 Labs: Laboratory Results - last 24 hr 04/15/25 04:40 WBC 8.8 RBC 4.35 Hgb 12.9 Hct 37.7 MCV 87 MCH 29.7 MCHC 34.2 RDW Std Deviation 41.1 Plt Count 197 Neut % (Auto) 46 Lymph % (Auto) 44 [place] % (Auto) 8 Eos % (Auto) 1 Baso % (Auto) 0 Neut # (Auto) 4.1 Lymph # (Auto) 3.9 [place] # (Auto) 0.7 Eos # (Auto) 0.1 Baso # (Auto) 0.0 Immature Gran # (Auto) 0.02 H Absolute Nucleated RBC 0.00 Immature Gran % 0 Nucleated RBC % 0 Sodium 139 Potassium 4.1 Chloride 107 Carbon Dioxide 21.5 Anion Gap 11 BUN 19 Creatinine 1.2 Estim Creat Clear Calc 38.5 L eGFR 48 L BUN/Creatinine Ratio 16 Glucose 134 H Calculated Osmolality 281 Calcium 8.4 Corrected Calcium 8.9 Phosphorus 2.4 Magnesium 1.7 Total Bilirubin 0.7 AST 36 H ALT 28 Alkaline Phosphatase 87 Total Protein 6.0 Albumin 3.4 D Globulin 2.6 Albumin/Globulin Ratio 1.3 Assessment & Plan Problem List (1) Cerebrovascular accident: Status: Acute Assessment and plan: MRI brain showed acute lacunar infarct in the right basal ganglia Continue with Plavix and statin Follow-up with echocardiogram.
[2025-04-16] VITALS: BP 123/72; PULSE 65; PULSE 73; RESP 14; TEMP 36.1; O2SAT 95
[2025-04-16 01:01] VITALS: BMI 25.8
[2025-04-16 04:00] VITALS: BP 123/73; PULSE 72; RESP 16; TEMP 36.2; O2SAT 97
[2025-04-16 05:42] LABS: Basophils # (Auto) 0.0 Thou/mm3 (0.0-0.2); Basophils % (Auto) 0 % (0-2.5); Eosinophils # (Auto) 0.2 Thou/mm3 (0.0-0.5); Eosinophils % (Auto) 2 % (0-10); Hematocrit 38.4 % (36.0-46.0); Hemoglobin 12.6 g/dL (12.0-16.0); Immature Granulocytes Auto 0.02 Thou/mm3 (0.00-0.00); Lymphocytes # (Auto) 3.9 Thou/mm3 (1.0-4.8); Lymphocytes % (Auto) 44 % (10-50); Mean Corpuscular HGB Conc 32.8 g/dl (31.0-37.0); Mean Corpuscular Hemoglobin 29.4 pg (25.0-35.0); Mean Corpuscular Volume 90 fL (80-100); Monocytes # (Auto) 0.8 Thou/mm3 (0.0-0.8); Monocytes % (Auto) 9 % (0-12); Neutrophils # (Auto) 3.8 Thou/mm3 (1.8-7.7); Neutrophils % (Auto) 44 % (37-80); Nucleated Red Blood Cell # 0.00 Thou/mm3 (0.00-0.00); Nucleated Red Blood Cell % 0 /100 WBC (0); Platelet Count 191 Thou/mm3 (140-440); RDW Standard Deviation 42.5 fL (36.4-46.3); Red Blood Count 4.29 Miln/mm3 (4.00-5.20); White Blood Count 8.7 Thou/mm3 (3.6-11.0)
[2025-04-16 06:19] LABS: Alanine Aminotransferase 32 U/L (10-49); Albumin, Serum 3.5 gm/dL (3.4-4.8); Anion Gap 9 (7-16); Aspartate Amino Transferase 41 U/L (0-34); BUN/Creatinine Ratio 16 Ratio (12-20); Bilirubin,Total 0.7 mg/dL (0.3-1.2); Blood Urea Nitrogen 21 mg/dL (9-23); Calcium 8.6 mg/dL (8.3-10.6); Carbon Dioxide 25.5 mMol/L (20.0-31.0); Chloride 106 mMol/L (98-107); Creatinine (Component) 1.3 mg/dL (0.6-1.3); Estimated Creatinine Clearance 38.7 mL/min (>60); Glucose 132 mg/dL (74-106); Magnesium 1.5 mg/dL (1.6-2.6); Osmolality,Calculated 284 (275-295); Phosphorous 2.5 mg/dL (2.4-5.1); Potassium 4.8 mMol/L (3.4-5.1); Sodium 140 mMol/L (136-145); Total Protein 6.1 gm/dL (5.7-8.2); eGFR 43 See Note
[2025-04-16 06:20] LABS: Albumin/Globulin Ratio 1.3 (1.2-2.2); Alkaline Phosphatase 88 U/L (46-116); Calcium (Corrected) 9.0 mg/dL (8.5-10.1); Globulin 2.6 gm/dL (2.3-3.5)
--- NOTE | 2025-04-16 07:08 | PD.RESPRO ---
Documentation for date of: 04/16/25 Exam Vital Signs Temp Pulse Resp BP Pulse Ox O2 Del Method 97.1 F 72 16 123/73 97 Room Air 04/16/25 04:00 04/16/25 04:00 04/16/25 04:00 04/16/25 04:00 04/16/25 04:00 04/16/25 04:00 Objective Labs 04/16/25 05:04 04/16/25 05:04 Labs: Laboratory Results - last 24 hr 04/16/25 05:04 WBC 8.7 RBC 4.29 Hgb 12.6 Hct 38.4 MCV 90 MCH 29.4 MCHC 32.8 RDW Std Deviation 42.5 Plt Count 191 Neut % (Auto) 44 Lymph % (Auto) 44 Barton % (Auto) 9 Eos % (Auto) 2 Baso % (Auto) 0 Neut # (Auto) 3.8 Lymph # (Auto) 3.9 Barton # (Auto) 0.8 Eos # (Auto) 0.2 Baso # (Auto) 0.0 Immature Gran # (Auto) 0.02 H Absolute Nucleated RBC 0.00 Immature Gran % 0 Nucleated RBC % 0 Sodium 140 Potassium 4.8 D Chloride 106 Carbon Dioxide 25.5 Anion Gap 9 BUN 21 Creatinine 1.3 Estim Creat Clear Calc 38.7 L eGFR 43 L BUN/Creatinine Ratio 16 Glucose 132 H Calculated Osmolality 284 Calcium 8.6 Corrected Calcium 9.0 Phosphorus 2.5 Magnesium 1.5 L Total Bilirubin 0.7 AST 41 H ALT 32 Alkaline Phosphatase 88 Total Protein 6.1 Albumin 3.5 Globulin 2.6 Albumin/Globulin Ratio 1.3 Quality Measures Quality Measures VTE prophylaxis Assessment & Plan Assessment Current Active Medications: Generic Name Dose Route Start Last Admin Trade Name Freq PRN Reason Stop Dose Admin Acetaminophen 650 mg 04/15/25 16:45 04/15/25 16:54 Acetaminophen 325 Mg Tablet PO 05/15/25 16:44 650 mg Q4HR PRN Administration PAIN SCALE 1-3 (mild Aspirin 81 mg 04/15/25 09:00 04/15/25 08:10 Aspirin Ec 81 Mg Tabec PO 05/15/25 08:59 81 mg QDAY ANTONIO Administration Atorvastatin Calcium 40 mg 04/14/25 15:15 04/15/25 08:09 Atorvastatin Calcium 10 Mg Tablet PO 05/14/25 15:14 40 mg DAILY ANTONIO Administration Clopidogrel Bisulfate 75 mg 04/15/25 09:00 04/15/25 08:10 Clopidogrel Bisulfate 75 Mg Tablet PO 05/15/25 08:59 75 mg QDAY ANTONIO Administration Dextrose 25 ml 04/14/25 15:23 Dextrose 50%-Water Inj 50 Ml Syringe IV 05/14/25 15:22 Q15MIN PRN BG 50-70 responsive npo pt Dextrose 50 ml 04/14/25 15:23 Dextrose 50%-Water Inj 50 Ml Syringe IV 05/14/25 15:22 Q15MIN PRN BG <50 OR BG <70 & pt unresponsive Glucagon 1 mg 04/14/25 15:23 Glucagon Inj 1 Mg Vial IM Q15MIN PRN BG <70, and no IV access Heparin Sodium (Porcine) 5,000 unit 04/14/25 21:00 04/15/25 20:47 Heparin Sod Inj 5000 Unit/Ml Vial SC 04/28/25 20:59 Not Given Q12HR ANTONIO Hydralazine HCl 10 mg 04/14/25 16:20 Hydralazine Inj 20 Mg/Ml Vial IVP 05/14/25 16:19 Q8HR PRN Blood Pressure - High >180 Insulin Glargine 20 unit 04/15/25 09:00 04/15/25 08:10 Insulin Glargine (Lantus) 5 Unit/0.05 Ml (Per 5 Units) SC 05/15/25 08:59 20 unit QDAY ANTONIO Administration Insulin Human Lispro 0 unit 04/16/25 07:30 Insulin Lispro (Admelog) 1 Unit/0.01 Ml Unit SC 05/16/25 07:29 [facility] Protocol Latanoprost 1 drop 04/14/25 21:00 04/15/25 20:42 Latanoprost Op Nancy 0.005% 2.5 Ml Btl BOTH EYES 05/14/25 20:59 1 drop QPM ANTONIO Administration Ondansetron HCl 4 mg 04/14/25 12:34 Ondansetron Inj 2 Mg/Ml Inj 2 Ml IVP 05/14/25 12:33 Q4HR PRN NAUSEA OR VOMITING Pantoprazole Sodium 40 mg 04/16/25 09:00 Pantoprazole 40 Mg Tablet PO 05/16/25 08:59 QDAY ANTONIO Pregabalin 300 mg 04/15/25 09:00 04/15/25 20:43 Pregabalin 75 Mg Capsule PO 05/15/25 08:59 300 mg BID ANTONIO Administration Temazepam 30 mg 04/15/25 21:00 04/15/25 20:43 Temazepam 15 Mg Capsule PO 04/20/25 20:59 30 mg HS ANTONIO Administration Timolol Maleate 1 drop 04/14/25 21:00 04/15/25 20:42 Timolol Op Nancy 0.5% 5 Ml Btl BOTH EYES 05/14/25 20:59 1 drop BID ANTONIO Administration
[2025-04-16] MEDS: INSULIN LISPRO (AdmeLOG) 1 UNIT/0.01 ML UNIT SC ×3 (07:30→16:33)
[2025-04-16 08:00] VITALS: BP 114/83; PULSE 63; PULSE 67; RESP 15; TEMP 36.4; O2SAT 97
[2025-04-16] MEDS: Magnesium Sulfate 4 GM Ivpb 4 GM/50 ML BAG IV (08:20)
[2025-04-16] MEDS: PANTOPRAZOLE 40 MG TABLET PO (08:21)
[2025-04-16] MEDS: CLOPIDOGREL BISULFATE 75 MG TABLET PO (08:21)
[2025-04-16] MEDS: ASPIRIN EC 81 MG TABEC PO (08:21)
[2025-04-16] MEDS: ATORVASTATIN CALCIUM 10 MG TABLET 40 MG PO (08:21)
[2025-04-16] MEDS: HEPARIN SOD INJ 5000 UNIT/ML VIAL SC (08:21)
[2025-04-16] MEDS: PREGABALIN 75 MG CAPSULE 300 MG PO (08:21)
[2025-04-16] MEDS: INSULIN GLARGINE (Lantus) 5 UNIT/0.05 ML (PER 5 UNITS) 20 UNIT SC (08:22)
[2025-04-16] MEDS: TIMOLOL OP SOL 0.5% 5 ML BTL 1 DROP BOTH EYES (09:00)
--- NOTE | 2025-04-16 10:17 | ESDS_ITS ---
<Statement entered by Kristina Kim DO - 04/17/25 08:36> I, Kristina Kim DO, attest that I was physically present for the trujillo portions of the service and evaluated the patient with the resident and I reviewed and discussed the case with the resident and agree with the resident's findings and plans of care as documented above <Statement entered by Ba Becerril MD - 04/16/25 13:59> I discussed and supervised with the planning intern physician who took care of this patient. I personally saw and examined the patient. I agree with most of the assessment and plan. Disclaimer: Despite multiple revisions, due to the dictation software being used, the document bellow may not be free of grammatical errors including phonetic/typographic errors. However, this does not deter from our commitment to providing health care in the patient's best interest in mind. Plan of care discussed with attending Physician Dr. Julio Becerril MD PGY-3 Planned Discharge Date 04/16/25 DS: Providers Provider Date of admission: 04/14/25 15:07 Primary care physician: Luz Maria Patino PA-C Admitting Provider: Kristina Kim DO Attending Provider on Admission: Kristina Kim DO Consults: 04/14/25 12:34 Consult to Neurology / Tele-Neurology Routine Comment: Consulting Provider: [facility] 04/14/25 15:11 Referral Physical Therapy Stat Comment: Physician Instructions: 04/14/25 15:12 Referral Speech Therapy Stat Comment: 04/14/25 15:19 Consult to Neurology / Tele-Neurology Stat Comment: pt here for stroke ro w L wkness, and spinal cyst Consulting Provider: Jose F Gavin 04/14/25 23:35 Referral Infection Control Routine Comment: Reason for Infection Control Referral: Readmitted within 30 days Referral Registered Dietitian Routine Comment: Attending Provider on DC: Dr. Kim Discharging Provider: Kimberly Hsu, DS: Diagnosis Problem List Completed Was Problem List Reviewed/Reconciled?: Yes Hospital Course Hospital Course Hospital course: Hospital Course 74F with PMH of HTN, DM2 on insulin, fibromyalgia, spinal cyst s/p surgery, who initially presented with acute LUE and LLE weakness/heaviness found to have 5 mm acute infarct in right thalamus on Brain MRI. Neurology consulted, recomend plavix 75 mg QD and atorvastatin 40mg at bedtime. ECHO, 60-65%. Symptoms now grossly resolved. LLE 4+/5 strength, no deficits on R side. pt able to ambulate. per patient, she ambulates with cane at home. Patient stable and medically cleared for discharge Diagnoses #Acute Ischemic Stroke ? 5 mm infarct in right thalamus #Leukocytosis (resolved) #Spinal Cyst #Type 2 Diabetes Mellitus #Hypertension #Hyperlipidemia #Fibromyalgia #Right Eye Glaucoma #Insomnia #Vaginal Prolapse Discharge instructions Take Plavix 75 mg once daily and atorvastatin 40 mg at bedtime Take all medication as prescribed Your aspirin was stopped per neurology recs Follow-up with your PCP as outpatient within a week Follow-up with neurologist as outpatient within a week In case of emergency, call 911 or come back to the ED Case discussed with my senior resident Dr. Becerril Case discussed with my attending Dr. Julio Hsu MD PGY-1 Time Spent with Patient Time attestation: Total time spent providing and/or coordinating discharge services: Time spent: Greater than 30 minutes Exam Vital Signs Temp Pulse Resp BP Pulse Ox O2 Del Method 97.5 F 63 15 114/83 97 Room Air 04/16/25 08:00 04/16/25 08:00 04/16/25 08:00 04/16/25 08:00 04/16/25 08:00 04/16/25 08:00 Narrative Exam General: No acute distress, alert and oriented ?3, conversant at bedside HEENT: Normocephalic, atraumatic; PERRL; EOMI; no facial asymmetry Neck: Supple, no JVD, no lymphadenopathy, no carotid bruits Cardiovascular: RRR, normal S1/S2, no murmurs, rubs, or gallops; no LE edema Respiratory: Clear to auscultation bilaterally, non-labored breathing GI: Abdomen soft, non-tender, non-distended, normal bowel sounds MSK: No joint swelling or deformity; able to ambulate with steady gait Neuro: CN II-XII grossly intact; strength 5/5 in bilateral upper extremities and right lower extremity; left lower extremity strength 4+/5 with reported heaviness in left thigh; no sensory deficits noted; normal coordination and speech Psych: Pleasant, appropriate affect, normal mood Skin: Warm, dry, no rashes or lesions Discharge Plan Plan Patient Disposition: HOME (Self Care) Care Plan Goals: Take Plavix 75 mg once daily and atorvastatin 40 mg at bedtime Take all medication as prescribed Your aspirin was stopped per neurology recs Follow-up with your PCP as outpatient within a week Follow-up with neurologist as outpatient within a week In case of emergency, call 911 or come back to the ED Prescriptions/Referrals Prescriptions/Med Rec: New atorvastatin 40 mg tablet 40 mg PO DAILY Qty: 60 0RF clopidogrel 75 mg Tablet 75 mg PO QDAY Qty: 60 0RF Continued temazepam [Restoril] 30 MG capsule 30 mg PO HS Qty: 0 magnesium 200 mg Tablet 200 mg PO QDAY latanoprost 0.005 % Drops 1 drp OPHTHALMIC (EYE) QPM timolol maleate 0.5 % Drops, Once Daily 1 drp OPHTHALMIC (EYE) BID pregabalin 300 mg Capsule 300 mg PO BID insulin glargine U-300 conc [Toujeo SoloStar U-300 Insulin] 300 unit/mL (1.5 mL) Insulin Pen 40 unit SUBCUT HS estradiol 1 mg tablet 1 mg PO HS Patient Comments: TAKE ONE TABLET BY MOUTH EVERY DAY Kerendia 10 mg tablet 10 mg PO HS Patient Comments: TAKE ONE TABLET BY MOUTH EVERY DAY Ozempic 0.25 mg or 0.5 mg (2 mg/3 mL) pen injector 0.5 mg SUBCUT QWEEK Patient Comments: INJECT 0.5 MG SUBCUTANEOUSLY EVERY WEEK FOR DIABETES Rx Instructions: EVERY THURSDAY-PER PATIENT Discontinued pravastatin [Pravachol] 80 MG tablet 80 mg PO HS Qty: 0 clonidine HCl 0.1 mg Tablet 0.1 mg PO BID Januvia 100 mg Tablet 100 mg PO QDAY buprenorphine HCl [Belbuca] 150 mcg Film 150 mcg BUCCAL Q12H benazepril 20 mg Tablet 20 mg PO QDAY glipizide 10 mg Tablet 10 mg PO BID cholecalciferol (vitamin D3) [Vitamin D3] 125 mcg (5,000 unit) Tablet 125 mcg PO BID cyanocobalamin (vitamin B-12) [Vitamin B-12] 5,000 mcg Tablet, Sublingual 5,000 mcg PO BID turmeric root extract 500 mg Capsule 500 mg PO BID insulin glargine U-300 conc [Toujeo Max U-300 SoloStar] 300 unit/mL (3 mL) insulin pen 40 unit SUBCUT HS Patient Comments: INJECT 40 UNITS SUBCUTANEOUSLY EVERY DAY FOR DIABETES Referrals: Jose F Gavin MD [Physician] - Luz Maria Patino PA-C [Primary Care Provider] - Patient/Caregiver Discharge Instructions Print Language: Welsh Stand Alone Forms: Mary Award Info., Patient Portal Info Letter Quality Discharge Quality Measures stroke Statin ordered >75 y/o:moderate or high intensity dose on DC: yes Statin ordered <75 y/o: high intensity dose on DC: yes Statin not ordered due to:: not indicated (pt was prescribed atorvastatin 40 mg qd ) Anticoagulation ordered for A-fib or flutter (current or hx): not indicated Antithrombotic ordered on DC: ordered
[2025-04-16 12:00] VITALS: BP 137/69; PULSE 63; PULSE 77; RESP 16; TEMP 36.3; O2SAT 97
[2025-04-16 16:00] VITALS: BP 133/70; PULSE 64; PULSE 65; RESP 16; TEMP 36.4; O2SAT 97
== END 2025-04-16 16:54 | disposition home or self-care (01) | DRG 66 ==
LOC: SERX 14:43 → SERHOLD 16:01 → S2NX 18:53
PROVIDERS: Nurse Practitioner Family; Admitting Provider Internal Medicine; Emergency Provider Family Medicine; PCP Physician Assistant; Visit Provider Internal Medicine
DX: I63.29 Cerebral infarction due to unspecified occlusion or stenosis of other precerebral arteries (principal); R29.705 NIHSS score 5; I10 Essential (primary) hypertension; R20.2 Paresthesia of skin; M79.7 Fibromyalgia; G47.00 Insomnia, unspecified; H40.9 Unspecified glaucoma; G96.198 Other disorders of meninges, not elsewhere classified; E11.40 Type 2 diabetes mellitus with diabetic neuropathy, unspecified; D72.829 Elevated white blood cell count, unspecified; H54.7 Unspecified visual loss; E11.51 Type 2 diabetes mellitus with diabetic peripheral angiopathy without gangrene; N99.3 Prolapse of vaginal vault after hysterectomy; E78.1 Pure hyperglyceridemia; Z79.02 Long term (current) use of antithrombotics/antiplatelets; Z79.4 Long term (current) use of insulin; Z79.82 Long term (current) use of aspirin; Z79.84 Long term (current) use of oral hypoglycemic drugs; Z79.899 Other long term (current) drug therapy; Z79.85 Long-term (current) use of injectable non-insulin antidiabetic drugs; Z88.5 Allergy status to narcotic agent; Z88.6 Allergy status to analgesic agent
CPT/HCPCS: 36415; 70450; 70544; 71045; 80053; 80061; 80307; 81001; 83036; 83735; 84100; 84443; 84484; 84703; 85025; 85610; 85730; 87081; 87086; 92610; 93005; 93306; 96365; 96366; 97162; J1644; J1815; J2470; J2765; J3475; A9270

== ENCOUNTER → 2025-04-27 | Outpatient (CLI) | payer MEDICARE, MEDICAID, SELFPAY ==
--- NOTE | 2025-04-27 12:30 | XR_ITS ---
Examination: Breast ultrasound, unilateral, right Date and time of exam: April 27, 2025 1244 hours INDICATIONS: Mammogram August 18, 2024 11 mm nodule 9:00 position right breast, right breast sonogram August 18, 2024 5:00 nodule 9 mm Technique: Real-time stephen scale ultrasonographic imaging performed right breast including all 4 quadrants as well as nipple retroareolar and axillary region. Findings: Sonographic images right breast 2:00 cyst 4 x 3 mm 2:00 cyst 6 x 4 mm 5:00 nodule circumscribed 4 x 3 mm 5:00 nodule circumscribed 8 x 10 mm 9:00 cyst 5 x 3 mm IMPRESSION: BI-RADS Category 3: Probably benign findings One additional 6 month follow-up right breast sonography needed to document stability of solid nodules described above
--- NOTE | 2025-04-27 13:00 | XR_ITS ---
Examination: Diagnostic digital mammography, unilateral, right Computer aided detection 3-D breast Tomosynthesis, unilateral Date and time of exam: April 27, 2025 1309 hours INDICATIONS: Mammogram August 18, 2024 11 mm nodule lobular margins 12:00 position right breast Technique: Nonmagnified MLO, CC views of the right breast have been obtained, reconstructed from 3-D Tomosynthesis images. R2 computer aided detection program utilized for evaluation of suspicious masses and/or abnormal calcifications. 3-D Tomosynthesis images obtained. Findings: The breast is heterogeneously dense, which may obscure small masses No suspicious mass on this but compression views Impression: BI-RADS category 2: Benign findings Recommend yearly follow-up mammography Please see the right breast sonogram report today indicating solid nodules 5:00 position requiring six-month right breast sonogram follow-up
== END | disposition home or self-care (01) ==
LOC: CDIM 12:22
PROVIDERS: PCP Physician Assistant; Referring Provider Physician Assistant; Visit Provider Physician Assistant
DX: R92.321 Mammographic fibroglandular density, right breast (principal); N63.14 Unspecified lump in the right breast, lower inner quadrant
CPT/HCPCS: 76641; 77061; 77065; G0279

== ENCOUNTER 2025-06-22 12:53 | Outpatient (RCR) | payer MEDICARE, MEDICAID, SELFPAY ==
--- NOTE | 2025-06-22 16:06 | PTNOTE_ITS ---
PT OP Initial Eval Patient Information Outpatient Physical Therapy Treatment Date: 06/22/25 Visit Reasons: Stroke/Left side weakness Medical Diagnosis: I69.3; M62.81 Treatment Dx #1: Left LE Weakness Treatment Dx #2: Balance Deficits Start of Care: 06/22/25 Date of Onset: March 2025 Smoking Status Smoking Status: Never smoker Initial Assessment Subjective: Pt is a 74 y/o female reports of left side weakness secondary to right acute thalamus infarct in March 2025. Pt still has difficulty with prolonged standing, walking, chores, self care, balance, stairs, and performing recreational activities. Pt mentioned she has poor vision on right eye leading to unsteadiness with walking. Objective: Left LE AROM: all motions are WFL Left LE MMTs: grossly 4-/5 Right LE MMTs: grossly 4/5 Sharpen Romber sec Sit-Stand Test: NT Assessment: Pt demonstrate left LE weakness and balance deficits leading to difficulty with ADLs. Pt will benefit from physical therapy to increase mobility, strength, and work on balance. Short Term and Crm System Administrator Goals 1) Increase left LE MMTs grossly to 4/5 in 6 wks to be able to walk more than 30 mins 3) Increase sharpen romberg to 30 sec in 6 wks to be able to perform chores 4) Increase sit to stand 10 reps in 6 wks to be able to perform recreational activities longer 5) Indep with HEP Treatment Plan 1) Manual Therapy 2) Therapeutic Activities 3) Therapeutic Exercises 4) Balance Training 5) Gait Training Frequency and Duration: 2 x wk for 6 wks Certification Dates: 06/22/25 to 09/21/25 Procedure Charges OP PT Eval Mod Complex 30 minutes: Yes
== END 2025-06-27 23:59 | disposition home or self-care (01) ==
LOC: CPTX 12:53
PROVIDERS: PCP Physician Assistant; Referring Provider Physician Assistant; Visit Provider Physician Assistant
DX: I69.354 Hemiplegia and hemiparesis following cerebral infarction affecting left non-dominant side (principal); I69.398 Other sequelae of cerebral infarction; R26.89 Other abnormalities of gait and mobility; M62.81 Muscle weakness (generalized); R26.2 Difficulty in walking, not elsewhere classified
CPT/HCPCS: 97162

== ENCOUNTER 2025-06-30 14:04 | Outpatient (RCR) | payer MEDICARE, MEDICAID, SELFPAY ==
--- NOTE | 2025-06-30 15:35 | PT.ODAYNRPT ---
PT Outpatient Daily Note OP Daily Note Outpatient Physical Therapy Treatment Date: 06/30/25 Visit Reasons: cva left sided weakness Subjective: Pt feels okay and continues to move around her yard as safe as she can. Objective: Please see flow chart for list of ther ex performed Assessment: tolerate exercises with minimal pain Plan: Continue with PT Length of Time (minutes) of Treatment: 30 Minutes Procedure Charges Therapeutic Exercise 30 minutes: Yes
== END 2025-07-28 23:59 | disposition home or self-care (01) ==
LOC: CPTX 14:04
PROVIDERS: PCP Physician Assistant; Referring Provider Physician Assistant; Visit Provider Physician Assistant
DX: I69.354 Hemiplegia and hemiparesis following cerebral infarction affecting left non-dominant side (principal); I69.398 Other sequelae of cerebral infarction; R26.89 Other abnormalities of gait and mobility; R26.2 Difficulty in walking, not elsewhere classified
CPT/HCPCS: 97110